=== PATIENT | male | born 1975 | race Caucasian/White ===

== ENCOUNTER → 2018-09-28 08:24 | Outpatient (CLI) | payer BC, SELFPAY ==
[2018-09-28 13:50] LABS: Basophils # 0.1 K/mm3 (0-0.2); Basophils % 0.9 % (0.1-2.0); Eosinophils # 0.3 K/mm3 (0.0-0.4); Eosinophils % 3.1 % (0.1-12.0); Hematocrit 47.5 % (42.0-52.0); Hemoglobin 15.8 g/dL (14.1-18.0); Lymphocytes # 2.5 K/mm3 (0.7-4.5); Lymphocytes % 30.7 % (10-50); Mean Corpuscular HGB Conc 33.3 g/dL (31.8-35.4); Mean Corpuscular Hemoglobin 29.6 pg (27.0-31.2); Mean Corpuscular Volume 88.9 fl (80-94); Mean Platelet Volume 8.3 fl (7.4-10.4); Monocytes # 0.5 K/mm3 (0.1-1.0); Monocytes % 5.8 % (1.7-9.3); Neutrophils # 4.7 K/mm3 (1.8-7.8); Neutrophils % 59.6 % (37.0-80.0); Platelet Count 250 K/mm3 (142-424); Red Blood Count 5.34 M/mm3 (4.60-6.20)
[2018-09-28 13:53] LABS: Alanine Aminotransferase 46 U/L (12-78); Albumin Level 3.7 gm/dL (3.4-5.0); Albumin/Globulin Ratio 1.1 (1.1-1.8); Alkaline Phosphatase 98 U/L (46-116); Anion Gap 14.8 mEq/L (5-15); Aspartate Amino Transferase 18 U/L (15-37); Bilirubin,Total 0.4 mg/dL (0.2-1.0); Blood Urea Nitrogen 12 mg/dL (7-18); Calcium 9.1 mg/dL (8.5-10.1); Carbon Dioxide 26 mmol/L (21.0-32.0); Chloride 106 mmol/L (98-107); Chol/HDL Ratio 10.7 (1-3.5); Cholesterol 236 mg/dL (140-200); Creatinine,Serum 0.91 mg/dL (0.70-1.30); Estimated Glomerular Filt Rate 91 ml/min (>60); GFR (African American) 110 ML/MIN (>60); Globulin 3.4 gm/dl (1.3-3.2); Glucose 102 mg/dL (74-106); HDL Cholesterol 22 mg/dL (27-67); LDL Cholesterol 147 mg/dL (0-130); Potassium 4.8 mmoL/L (3.5-5.1); Sodium 142 mmol/L (136-145); Total Protein,Serum 7.1 gm/dL (6.4-8.2); Triglycerides 337 mg/dL (30-200); VLDL Cholesterol 67 mg/dL (0-40)
== END ==
PROVIDERS: PCP Internal Medicine Adolescent Medicine; Visit Provider Internal Medicine Adolescent Medicine
DX: E78.2 Mixed hyperlipidemia (principal); R73.9 Hyperglycemia, unspecified
CPT/HCPCS: 36415; 80053; 80061; 85025

== ENCOUNTER → 2019-09-02 07:15 | Outpatient (CLI) | payer BC, SELFPAY ==
[2019-09-02 12:55] LABS: Basophils # 0.1 K/mm3 (0-0.2); Basophils % 0.7 % (0.1-2.0); Eosinophils # 0.2 K/mm3 (0.0-0.4); Eosinophils % 2.2 % (0.1-12.0); Hematocrit 40.2 % (42.0-52.0); Hemoglobin 15.5 g/dL (14.1-18.0); Lymphocytes # 2.8 K/mm3 (0.7-4.5); Lymphocytes % 29.4 % (10-50); Mean Corpuscular HGB Conc 38.6 g/dL (31.8-35.4); Mean Corpuscular Hemoglobin 34.6 pg (27.0-31.2); Mean Corpuscular Volume 89.6 fl (80-94); Mean Platelet Volume 8.4 fl (7.4-10.4); Monocytes # 0.6 K/mm3 (0.1-1.0); Monocytes % 6.1 % (1.7-9.3); Neutrophils # 5.8 K/mm3 (1.8-7.8); Neutrophils % 61.6 % (37.0-80.0); Platelet Count 221 K/mm3 (142-424); Red Blood Count 4.49 M/mm3 (4.60-6.20); Red Cell Distribution Width 13.9 % (11.5-17.5); White Blood Count 9.4 K/mm3 (4.8-10.8)
[2019-09-02 14:57] LABS: Alanine Aminotransferase 41 U/L (12-78); Albumin Level 3.7 gm/dL (3.4-5.0); Albumin/Globulin Ratio 1.2 (1.1-1.8); Alkaline Phosphatase 115 U/L (46-116); Anion Gap 11.9 mEq/L (5-15); Aspartate Amino Transferase 21 U/L (15-37); Blood Urea Nitrogen 17 mg/dL (7-18); Calcium 8.7 mg/dL (8.5-10.1); Carbon Dioxide 26 mmol/L (21.0-32.0); Chloride 106 mmol/L (98-107); Chol/HDL Ratio 9.3 (1-3.5); Cholesterol 215 mg/dL (140-200); Creatinine,Serum 1.07 mg/dL (0.70-1.30); Estimated Glomerular Filt Rate 75 ml/min (>60); GFR (African American) 90 ML/MIN (>60); Glucose 108 mg/dL (74-106); HDL Cholesterol 23 mg/dL (27-67); LDL Cholesterol 129 mg/dL (0-130); Potassium 4.9 mmoL/L (3.5-5.1); Sodium 139 mmol/L (136-145); Total Protein,Serum 6.7 gm/dL (6.4-8.2); Triglycerides 315 mg/dL (30-200); VLDL Cholesterol 63 mg/dL (0-40)
[2019-09-02 15:08] LABS: Bilirubin,Total 0.3 mg/dL (0.2-1.0)
== END ==
PROVIDERS: Visit Provider Internal Medicine Adolescent Medicine
DX: E78.2 Mixed hyperlipidemia (principal); R73.9 Hyperglycemia, unspecified
CPT/HCPCS: 36415; 80053; 80061; 85025

== ENCOUNTER → 2020-02-13 08:17 | Outpatient (CLI) | payer BC, SELFPAY ==
--- NOTE | 2020-02-13 08:23 | US_ITS ---
PROCEDURE: US ABD. AORTA SCREENING CLINICAL INDICATION: PRE-SYNCOPE,FAMILY H/O AAA COMPARISON: No exams were available for comparison FINDINGS: Maximum abdominal aorta diameter is 2 cm. No evidence of aortic aneurysm. Proximal common iliacs are unremarkable. IMPRESSION: Negative for aortic aneurysm Dictated by: Alex Tyler MD 02/13/2020 11:12 Electronically signed by Alex Tyler MD in [place] 02/13/2020 11:12
== END ==
PROVIDERS: PCP Internal Medicine Adolescent Medicine; Visit Provider Internal Medicine Adolescent Medicine
DX: R55 Syncope and collapse (principal); Z82.49 Family history of ischemic heart disease and other diseases of the circulatory system
CPT/HCPCS: 76705

== ENCOUNTER → 2020-11-16 08:39 | Outpatient (CLI) | payer BC, SELFPAY ==
[2020-11-16 13:49] LABS: Basophils # 0.1 K/mm3 (0-0.2); Basophils % 1.4 % (0.1-2.0); Eosinophils # 0.3 K/mm3 (0.0-0.4); Hemoglobin 15.8 g/dL (14.1-18.0); Lymphocytes # 2.6 K/mm3 (0.7-4.5); Lymphocytes % 27.8 % (10-50); Mean Corpuscular HGB Conc 31.6 g/dL (31.8-35.4); Mean Corpuscular Hemoglobin 29.2 pg (27.0-31.2); Mean Corpuscular Volume 92.3 fl (80-94); Mean Platelet Volume 8.2 fl (7.4-10.4); Monocytes # 0.6 K/mm3 (0.1-1.0); Monocytes % 5.8 % (1.7-9.3); Neutrophils # 5.9 K/mm3 (1.8-7.8); Platelet Count 211 K/mm3 (142-424); Red Blood Count 5.42 M/mm3 (4.60-6.20); White Blood Count 9.5 K/mm3 (4.8-10.8)
[2020-11-16 13:54] LABS: Alanine Aminotransferase 36 U/L (12-78); Albumin Level 4.1 g/dl (3.5-5.0); Albumin/Globulin Ratio 1.6 (1.1-1.8); Alkaline Phosphatase 114 U/L (38-126); Anion Gap 11.7 mEq/L (5-15); Aspartate Amino Transferase 29 U/L (17-59); Bilirubin,Total 0.6 mg/dl (0.2-1.3); Blood Urea Nitrogen 13 mg/dl (9-20); Calcium 9.2 mg/dl (8.4-10.2); Carbon Dioxide 23 mmol/L (22.0-30.0); Chloride 110 mmol/L (98-107); Chol/HDL Ratio 4.6 (1-3.5); Cholesterol 124 mg/dl (140-200); Estimated Glomerular Filt Rate 91 ml/min (>60); GFR (African American) 110 ML/MIN (>60); Globulin 2.6 g/dL (1.3-3.2); Glucose 104 mg/dl (74-100); HDL Cholesterol 27 mg/dl (40-60); Potassium 4.7 mmoL/L (3.5-5.1); Sodium 140 mmol/L (136-145); Total Protein,Serum 6.7 g/dl (6.3-8.2); Triglycerides 98 mg/dl (30-150); VLDL Cholesterol 20 mg/dL (0-40)
[2020-11-16 14:05] LABS: Direct LDL Cholesterol 79.13 mg/dL (100-129)
== END ==
PROVIDERS: Visit Provider Internal Medicine Adolescent Medicine
DX: E78.2 Mixed hyperlipidemia (principal); R73.9 Hyperglycemia, unspecified
CPT/HCPCS: 36415; 80053; 80061; 85025

== ENCOUNTER 2022-08-31 17:59 | Emergency (ER) | payer BC, SELFPAY ==
[2022-08-31 18:20] VITALS: BP 133/84; PULSE 101; RESP 20; TEMP 37.4; O2SAT 99; BMI 35.4
[2022-08-31 18:51] LABS: UTC Influenza A Antigen Negative (Negative); UTC Influenza B Antigen Negative (Negative)
--- NOTE | 2022-08-31 19:19 | EXP.UTC ---
Discharge Plan Disposition Patient Disposition: Home, Self-Care Condition: Good Prescriptions Prescriptions: New benzonatate 100 mg capsule 100 mg PO TID PRN (Reason: cough) Qty: 30 0RF methylprednisolone [Medrol (Cornelius)] 4 mg tablets,dose pack See Rx Instructions .Route .COMPLEX 6 Days Qty: 21 0RF Rx Instructions: taper pack; guaifenesin [Mucinex] 600 mg tablet extended release 12hr 1,200 mg PO BID PRN (Reason: cough) Qty: 20 0RF azithromycin [Zithromax Z-Cornelius] 250 mg tablet See Rx Instructions .ROUTE .COMPLEX 5 Days Qty: 6 0RF Rx Instructions: For 250 mg dose pack: take 500 mg today (day 1), then 250 mg for 4 days (days 2-5) Referrals Follow up/Referrals: Gama Agrawal MD [Primary Care Provider] - See instructions Activity Restrictions/Add. Instructions Additional Instructions/Restrictions: Start antibiotic today. Be sure to complete entire prescription even if feeling better Monitor temp. Tylenol every 4 hours as needed and / or ibuprofen every 6 hours as needed ( As long as your primary care physician has told you that it ok to take both. For fever/aches/pains ER if no less than 101 despite Tylenol or Motrin Humidifier/vaporizer or hot steamy shower Mucinex during the day for your cough and cough suppressant only at night. Be sure to drink lots of water. *Tessalon Perles will not cause drowsiness but use at bedtime to help stop cough so that you may get some rest. *Start steroid today. Helps with inflammation therefore, cough and wheezing. Follow directions on the package. Reviewed side effects. Patient reports taking them before. Follow up IMMEDIATELY for new or worsening of symptoms OR no noticeable improvement over the next 48-72 hours. 911 immediately for any life threatening symptoms such as chest pain or difficulty breathing Clinical Impressions Clinical Impression: Sinusitis Stand Alone Forms Stand Alone Forms: Work/School Release Instructions Patient Instructions: DI for Sinusitis, Sinusitis Discharge ED Provider: Lisa Neumann [facility] [place] HPI General Stated complaint: Congestion,Snezzing,cough,fever,Headache Mode of Arrival: Ambulatory Source of Information: Patient Limitations: No Limitations Time Seen by Provider: 08/31/22 19:19 Description of Symptoms (Recalled from Triage Doc. by RN): runny nose, RENTERIA, cough, and low grade fever HEENT Symptoms (Recalled from RN notes): Yes Resp Symptoms (Recalled from RN notes): No Skin Symptoms (Recalled from RN notes): No MS Symptoms (Recalled from RN notes): No Functional Status (Recalled from RN notes): n/a History of Present Illness Provider Complaint: Patient states that he hasnt felt well for several days States that since he has continued to get worse States that he has been having sinus pain and pressure in his sinuses, cough, headache and pressure behind his eyes States that he has been taking OTC medications but they havent helped much States that this evening he was still not feeling well so he came in to get checked Related Data Previous Rx's Medication Instructions Recorded azithromycin 250 mg tablet See Rx Instructions PO .COMPLEX 5 08/31/22 (Zithromax Z-Cornelius) days #6 tabs benzonatate 100 mg capsule 100 mg PO TID PRN cough #30 caps 08/31/22 guaifenesin 600 mg tablet, 1,200 mg PO BID PRN cough #20 tabs 08/31/22 extended release 12 hr (Mucinex) methylprednisolone 4 mg tablets in See Rx Instructions .Route 08/31/22 a dose pack (Medrol (Cornelius)) .COMPLEX 6 days #21 tabs Allergies Allergy/AdvReac Type Severity Reaction Status Date / Time No Known Allergies Allergy Verified 08/31/22 18:45 Worker's Comp Is this a Worker's Comp case?: No [facility] Disclaimer: The information contained in this section may have been updated after the patient was seen, as this information can be updated by other users. Social History Smoking Status: Unknown if ever smoked
[2022-08-31 19:41] VITALS: BP 133/84; PULSE 101; RESP 20; TEMP 37.4; O2SAT 99
== END 2022-08-31 19:40 | disposition home or self-care (01) ==
PROVIDERS: Emergency Provider Nurse Practitioner; PCP Internal Medicine Adolescent Medicine
DX: J32.9 Chronic sinusitis, unspecified (principal)
CPT/HCPCS: 87804; 99212; 99213; C9803; G0463; U0003; U0005

== ENCOUNTER 2023-03-20 18:48 | Emergency (ER) | payer BC, SELFPAY ==
[2023-03-20 18:49] VITALS: BP 146/73; PULSE 97; RESP 22; TEMP 37.1; O2SAT 94; BMI 35.9
--- NOTE | 2023-03-20 19:00 | EXP.UTC ---
Discharge Plan Disposition Patient Disposition: Home, Self-Care Condition: Good Prescriptions Prescriptions: New benzonatate [benzonatate] 100 mg capsule 100 mg PO TIDP PRN (Reason: Cough) Qty: 30 0RF methylprednisolone 4 mg Tablets,Dose Pack 4 mg PO DIRECTED Qty: 21 0RF albuterol sulfate [Ventolin HFA] 90 mcg/actuation HFA aerosol inhaler 2 puff inhalation Q6H PRN (Reason: shortness of breath or wheezing) Qty: 6.7 0RF amoxicillin-pot clavulanate 875-125 mg Tablet 1 tab PO Q12H Qty: 20 0RF No Action benzonatate 100 mg capsule 100 mg PO TID PRN (Reason: cough) Qty: 30 0RF methylprednisolone [Medrol (Cornelius)] 4 mg tablets,dose pack See Rx Instructions .Route .COMPLEX 6 Days Qty: 21 0RF Rx Instructions: taper pack; guaifenesin [Mucinex] 600 mg tablet extended release 12hr 1,200 mg PO BID PRN (Reason: cough) Qty: 20 0RF azithromycin [Zithromax Z-Cornelius] 250 mg tablet See Rx Instructions .ROUTE .COMPLEX 5 Days Qty: 6 0RF Rx Instructions: For 250 mg dose pack: take 500 mg today (day 1), then 250 mg for 4 days (days 2-5) Referrals Follow up/Referrals: Gama Agrawal MD [Primary Care Provider] - See instructions Activity Restrictions/Add. Instructions Additional Instructions/Restrictions: Drink plenty of fluids. Take tylenol or ibuprofen for pain or fever. Take the medications as directed. Follow up with your regular doctor. GO TO THE ER FOR ANY WORSENING SYMPTOMS Don't start the oral steroids until tomorrow, since you had the shot here today. Clinical Impressions Clinical Impression: Acute bronchitis, Sinusitis Stand Alone Forms Stand Alone Forms: Work/School Release Instructions Patient Instructions: DI for Sinusitis, DI for Acute Bronchitis, Ceftriaxone Injection, Methylprednisolone Injection Discharge ED Provider: Ben Alva [facility] General Stated complaint: congestion,soa Time Seen by Provider: 03/20/23 19:00 History of Present Illness Provider Complaint: He states that for the past 3 days he has had worsening chest and sinus congestion. He states that he gets short of breath if he walks or does anything strenuous. He denies any fever, but he has had chilling and body aches. Related Data Previous Rx's Medication Instructions Recorded azithromycin 250 mg tablet See Rx Instructions PO .COMPLEX 5 08/31/22 (Zithromax Z-Cornelius) days #6 tabs benzonatate 100 mg capsule 100 mg PO TID PRN cough #30 caps 08/31/22 guaifenesin 600 mg tablet, 1,200 mg PO BID PRN cough #20 tabs 08/31/22 extended release 12 hr (Mucinex) methylprednisolone 4 mg tablets in See Rx Instructions .Route 08/31/22 a dose pack (Medrol (Cornelius)) .COMPLEX 6 days #21 tabs albuterol sulfate 90 mcg/actuation 2 puff inhalation Q6H PRN 03/20/23 aerosol inhaler (Ventolin HFA) shortness of breath or wheezing #6.7 grams amoxicillin 875 mg-potassium 1 tab PO Q12H #20 tabs 03/20/23 clavulanate 125 mg tablet benzonatate 100 mg capsule 100 mg PO TIDP PRN Cough #30 caps 03/20/23 methylprednisolone 4 mg tablets in 4 mg PO DIRECTED #21 tabs 03/20/23 a dose pack Allergies Allergy/AdvReac Type Severity Reaction Status Date / Time No Known Allergies Allergy Verified 08/31/22 18:45 [facility] Disclaimer: The information contained in this section may have been updated after the patient was seen, as this information can be updated by other users. Social History (Updated 08/31/22 @ 19:26 by Lisa Neumann APRN) Smoking Status: Unknown if ever smoked alcohol intake: never current occupational status: employed Travel in the last 8 weeks: None ROS Obtained: Yes All systems reviewed & no additional complaints except as documented Constitutional Constitutional: Reports poor appetite Eyes Eyes: Reports system reviewed and no additional complaints, except as documented ENT Ears, Nose, Mouth, and Throat: Reports as per HPI Cardiovascular Cardiovascular:
--- NOTE | 2023-03-20 19:03 | XR_ITS ---
PROCEDURE INFORMATION: Exam: XR Chest Exam date and time: 03/20/2023 7:11 PM Age: 47 years old Clinical indication: Cough; Additional info: Cough, congestion TECHNIQUE: Imaging protocol: Radiologic exam of the chest. Views: 2 views. COMPARISON: No relevant prior studies available. FINDINGS: Lungs: Mild regions of peribronchial thickening at the lung bases. Pleural spaces: Unremarkable. No pleural effusion. No pneumothorax. Heart/Mediastinum: Unremarkable. No cardiomegaly. Bones/joints: Unremarkable. IMPRESSION: Findings compatible with bronchitis.
[2023-03-20 19:46] VITALS: BP 146/73; PULSE 97; RESP 22; TEMP 37.1; O2SAT 94
== END 2023-03-20 19:48 | disposition home or self-care (01) ==
PROVIDERS: Emergency Provider Nurse Practitioner Family; PCP Internal Medicine Adolescent Medicine
DX: J20.9 Acute bronchitis, unspecified (principal); J01.90 Acute sinusitis, unspecified
CPT/HCPCS: 71046; 96372; 99212; 99214; G0463; J0696

== ENCOUNTER 2023-07-28 21:42 | Observation (INO) | payer BC, SELFPAY ==
[2023-07-28 21:51] VITALS: BP 157/85; PULSE 58; RESP 17; TEMP 36.8; O2SAT 93; BMI 36.2
--- NOTE | 2023-07-28 21:52 | ECG_ITS ---
APPROVED REPORT Exam: Resting ECG HR:111 bpm ECG Measurements Heart Rate 111 AXES ND 147 P 28 QRSd 85 QRS 62 QT 310 T 61 QTc 375 Conclusion SINUS TACHYCARDIA WITH FREQUENT VENTRICULAR PREMATURE COMPLEXES ABNORMAL RHYTHM ECG UNCONFIRMED REPORT Electronically signed by : Gama Agrawal MD 07/30/2023 20:35:41
--- NOTE | 2023-07-28 21:57 | XR_ITS ---
PROCEDURE INFORMATION: Exam: XR Chest Exam date and time: 07/28/2023 9:54 PM Age: 48 years old Clinical indication: Shortness of breath; Additional info: Shortness of air TECHNIQUE: Imaging protocol: Radiologic exam of the chest. Views: 2 views. COMPARISON: CR XR CHEST 2V 03/20/2023 7:11 PM FINDINGS: Lungs: Pulmonary vessels are normal. Low lung volumes. Mild patchy opacification perihilar regions. No focal airspace consolidation. Pleural spaces: Unremarkable. No pleural effusion. No pneumothorax. Heart/Mediastinum: Cardiac silhouette is normal. Bones/joints: Unremarkable. IMPRESSION: Mild patchy opacification perihilar regions. Possible bronchitic change.
--- NOTE | 2023-07-28 21:57 | XR_ITS ---
PROCEDURE INFORMATION: Exam: XR Left Shoulder Exam date and time: 07/28/2023 9:55 PM Age: 48 years old Clinical indication: Pain; Shoulder; Left; Additional info: Pain with inspiration TECHNIQUE: Imaging protocol: Radiologic exam of the left shoulder. Views: 2 or more views. COMPARISON: CR Chest 07/28/2023 9:54 PM FINDINGS: Bones/joints: Normal. Soft tissues: Normal. IMPRESSION: No acute findings.
[2023-07-28 22:00] VITALS: BP 147/72; PULSE 55; O2SAT 92
[2023-07-28 22:04] LABS: Coronavirus 19, PCR Not Detected (NotDetected); Influenza A, PCR Not Detected (NotDetected); Influenza B, PCR Not Detected (NotDetected)
[2023-07-28 22:08] LABS: Basophils # 0.1 K/mm3 (0-0.2); Basophils % 0.5 % (0.1-2.0); Eosinophils # 0.3 K/mm3 (0.0-0.4); Eosinophils % 1.6 % (0.1-12.0); Hematocrit 47.9 % (42.0-52.0); Hemoglobin 16.4 g/dL (14.1-18.0); Lymphocytes % 18.6 % (10-50); Mean Corpuscular HGB Conc 34.2 g/dL (31.8-35.4); Mean Corpuscular Hemoglobin 29.9 pg (27.0-31.2); Mean Corpuscular Volume 87.4 fl (80-94); Mean Platelet Volume 8.1 fl (7.4-10.4); Monocytes % 6.3 % (1.7-9.3); Neutrophils # 11.6 K/mm3 (1.8-7.8); Neutrophils % 73.1 % (37.0-80.0); Platelet Count 217 K/mm3 (142-424); Red Blood Count 5.47 M/mm3 (4.60-6.20); Red Cell Distribution Width 13.2 % (11.5-17.5); White Blood Count 15.9 K/mm3 (4.8-10.8)
[2023-07-28 22:12] LABS: MANUAL DIFFERENTIAL MANUAL DIFFERENTIAL (MANUAL DIFF)
[2023-07-28 22:19] LABS: Chloride 101 mmol/L (98-107); Sodium 135 mmol/L (136-145)
[2023-07-28 22:20] LABS: Potassium 4.3 mmoL/L (3.5-5.1)
[2023-07-28 22:22] LABS: Alanine Aminotransferase 26 U/L (12-78); Albumin Level 3.4 g/dl (3.5-5.0); Albumin/Globulin Ratio 1.1 (1.1-1.8); Alkaline Phosphatase 90 U/L (38-126); Anion Gap 9.3 mEq/L (5-15); Aspartate Amino Transferase 30 U/L (17-59); Blood Urea Nitrogen 14 mg/dl (9-20); Carbon Dioxide 29 mmol/L (22.0-30.0); Creatinine Clearance Estimated 149 mL/min (50-200); Estimated Glomerular Filt Rate 79 ml/min (>60); GFR (African American) 96 ML/MIN (>60); Globulin 3.2 g/dL (1.3-3.2); Total Protein,Serum 6.6 g/dl (6.3-8.2)
[2023-07-28 22:23] LABS: Calcium 8.2 mg/dl (8.4-10.2); Glucose 115 mg/dl (74-100)
[2023-07-28 22:26] LABS: Eosinophils % 2 % (0-3); Lymphocytes % 18 % (10-50); Monocytes % 6 % (2-9); Neutrophils % 74 % (42-76); Platelet Estimate Normal; RBC Morphology Normal; Total Cells Counted 100
[2023-07-28 22:31] VITALS: BP 110/54; PULSE 55; O2SAT 91
[2023-07-28 22:32] LABS: NT Pro Brain Natriuretic Pep. 24.5 pg/mL (0-125)
--- NOTE | 2023-07-28 22:34 | ECG_ITS ---
APPROVED REPORT Exam: Resting ECG HR:106 bpm ECG Measurements Heart Rate 106 AXES VA 145 P 44 QRSd 80 QRS 65 QT 310 T 69 QTc 372 Conclusion SINUS TACHYCARDIA WITH FREQUENT VENTRICULAR PREMATURE COMPLEXES ABNORMAL RHYTHM ECG UNCONFIRMED REPORT Electronically signed by : Gama Agrawal MD 07/30/2023 20:35:35
--- NOTE | 2023-07-28 22:36 | PC.NURSE ---
in room talking with patient at this time.
--- NOTE | 2023-07-28 22:38 | CT_ITS ---
PROCEDURE INFORMATION: Exam: CTA Chest With Contrast Exam date and time: 07/28/2023 10:54 PM Age: 48 years old Clinical indication: Chest wall pain; Additional info: Pleuritic chest pain TECHNIQUE: Imaging protocol: Computed tomographic angiography of the chest with contrast. Exam focused on the arteries. 3D rendering (Not supervised by radiologist): MIP and/or 3D reconstructed images were created by the technologist. Radiation optimization: All CT scans at this facility use at least one of these dose optimization techniques: automated exposure control; mA and/or kV adjustment per patient size (includes targeted exams where dose is matched to clinical indication); or iterative reconstruction. Contrast material: ISOUVE; Contrast volume: 75 ml; Contrast route: INTRAVENOUS (IV); COMPARISON: CR Chest 07/28/2023 9:54 PM FINDINGS: Pulmonary arteries: Suboptimal contrast opacification of the pulmonary arteries. Peripheral vessels are suboptimally opacified. No central pulmonary emboli seen. Aorta: Unremarkable. No aortic aneurysm. No aortic dissection. Lungs: Mild ground-glass opacification of the lungs. Mild patchy airspace opacification left lower lobe image 7/86. Low lung volumes. Pleural spaces: Unremarkable. No pneumothorax. No pleural effusion. Heart: Unremarkable. No cardiomegaly. No pericardial effusion. Lymph nodes: Unremarkable. No enlarged lymph nodes. Bones/joints: Unremarkable. No acute fracture. Soft tissues: Unremarkable. IMPRESSION: 1. Suboptimal contrast opacification of the pulmonary arteries. Peripheral vessels are suboptimally opacified. No central pulmonary emboli seen. 2. Mild ground-glass opacification of the lungs. Differential diagnosis includes expiratory low volume lungs, inflammation or edema. 3. Mild patchy airspace opacification left lower lobe ; atelectasis or early infiltrate. 4. Low lung volumes.
[2023-07-28 22:39] LABS: Troponin I < 0.01 ng/ml (0.00-0.034)
--- NOTE | 2023-07-28 22:39 | [facility].EDCP ---
Discharge Plan Disposition Patient Disposition: Still a Patient Prescriptions Prescriptions: No Action benzonatate 100 mg capsule 100 mg PO TID PRN (Reason: cough) Qty: 30 0RF methylprednisolone [Medrol (Cornelius)] 4 mg tablets,dose pack See Rx Instructions .Route .COMPLEX 6 Days Qty: 21 0RF Rx Instructions: taper pack; guaifenesin [Mucinex] 600 mg tablet extended release 12hr 1,200 mg PO BID PRN (Reason: cough) Qty: 20 0RF azithromycin [Zithromax Z-Cornelius] 250 mg tablet See Rx Instructions .ROUTE .COMPLEX 5 Days Qty: 6 0RF Rx Instructions: For 250 mg dose pack: take 500 mg today (day 1), then 250 mg for 4 days (days 2-5) benzonatate [benzonatate] 100 mg capsule 100 mg PO TIDP PRN (Reason: Cough) Qty: 30 0RF methylprednisolone 4 mg Tablets,Dose Pack 4 mg PO DIRECTED Qty: 21 0RF albuterol sulfate [Ventolin HFA] 90 mcg/actuation HFA aerosol inhaler 2 puff inhalation Q6H PRN (Reason: shortness of breath or wheezing) Qty: 6.7 0RF amoxicillin-pot clavulanate 875-125 mg Tablet 1 tab PO Q12H Qty: 20 0RF Referrals Follow up/Referrals: Gama Agrawal MD [Primary Care Provider] - See instructions Clinical Impressions Clinical Impression: Chest pain, pleuritic, Frequent PVCs Discharge ED Provider: Uyen Jeffery [facility] <Uyen Jeffery MD - Last Filed: 07/28/23 22:43> General Chief Complaint: Shortness of Breath/Dyspnea Stated Complaint: SOA,cough Time Seen by Provider: 07/28/23 22:22 Mode of Arrival: Family Vehicle Source of Information: Patient Limitations: No Limitations Description of Symptoms (Recalled from ER Triage Doc. by RN): 48 yo male presents with mid left back pain/mid left shoulder pain that increases with inspiration/movement. Patient states he has notable increase in SOA since Thursday, accompanied by this pain. Denies trauma, however was lifting on [place] this date. H/o of a trauma a year ago with similar discomfort. Hasn't seen PCP in 2 years. Former smoker. No meds despite PCP trying to have him on hyperlipidemia control and hypertension control. Patient family h/o: sig for cards. History of Present Illness HPI narrative: Patient is a 48-year-old male with no significant past medical problems presenting today with pleuritic chest pain on the left aspect of his chest wall also in his left axillary region. States that he had a cough for the last several days as well. Also states that he had a viral URI 2 weeks ago in middle of June. Denies any fevers or chills does state this pain is positional in nature improving with sitting forward worsening with lying back particularly to the left side. Related Data Previous Rx's Medication Instructions Recorded azithromycin 250 mg tablet See Rx Instructions PO .COMPLEX 5 08/31/22 (Zithromax Z-Cornelius) days #6 tabs benzonatate 100 mg capsule 100 mg PO TID PRN cough #30 caps 08/31/22 guaifenesin 600 mg tablet, 1,200 mg PO BID PRN cough #20 tabs 08/31/22 extended release 12 hr (Mucinex) methylprednisolone 4 mg tablets in See Rx Instructions .Route 08/31/22 a dose pack (Medrol (Cornelius)) .COMPLEX 6 days #21 tabs albuterol sulfate 90 mcg/actuation 2 puff inhalation Q6H PRN 03/20/23 aerosol inhaler (Ventolin HFA) shortness of breath or wheezing #6.7 grams amoxicillin 875 mg-potassium 1 tab PO Q12H #20 tabs 03/20/23 clavulanate 125 mg tablet benzonatate 100 mg capsule 100 mg PO TIDP PRN Cough #30 caps 03/20/23 methylprednisolone 4 mg tablets in 4 mg PO DIRECTED #21 tabs 03/20/23 a dose pack Allergies Allergy/AdvReac Type Severity Reaction Status Date / Time No Known Allergies Allergy Verified 08/31/22 18:45 PFSH <Uyen Jeffery MD - Last Filed: 07/28/23 22:43> PFS Disclaimer: The information contained in this section may have been updated after the patient was seen, as this information can be updated by other users. Social History (Updated 08/31/22 @ 19:26 by Lisa Neumann APRN) Smoking Status: Former smoker alcohol intake: never current occupational status: employed Travel in the last 8 weeks: None <Uyen Jeffery MD - Last Filed: 07/28/23 22:43> ROS Obtained: Yes All systems reviewed & no additional complaints except as documented Physical Exam <Uyen Jeffery MD - Last Filed: 07/28/23 22:43> General General appearance: alert Respiratory Respiratory exam: Present normal lung sounds bilaterally; Absent respiratory distress, wheezes, stridor or accessory muscle use Cardiovascular Cardiovascular exam: Present bradycardia Neurological Exam Neurological exam: Present alert, oriented X3, CN II-XII intact and normal gait; Absent motor sensory deficit HEART Score <Uyen Jeffery MD - Last Filed: 07/28/23 22:43> HEART Score HEART Score assessment performed?: No Critical Care <Uyen Jeffery MD - Last Filed: 07/28/23 22:43> Critical Care Time Critical Care Time: No Medical Decision Making <Uyen Jeffery MD - Last Filed: 07/28/23 22:43> Miguel Inquiry Pt receiving controlled substance: No Vital Signs Vital Signs: 07/28/23 21:51 07/28/23 22:00 07/28/23 22:31 Temperature 98.2 F Temperature Source Oral Pulse Rate 55 L 55 L Pulse Rate [Right Brachial] 58 L Respiratory Rate 17 Blood Pressure 147/72 H 110/54 L Blood Pressure [Right Arm] 157/85 H Blood Pressure Mean [Right Arm] 109 Blood Pressure Source [Right Arm] Automatic Cuff Blood Pressure Position [Right Arm] Sitting 02 Sat by Pulse Oximetry 93 L 92 L 91 L Oxygen Delivery Method Room Air Room Air Lab Data Lab results reviewed: Yes I reviewed the patient's lab results. Labs: Lab Results 07/28/23 21:48: SARS-CoV-2 (PCR) Not detected, Influenza A Untype (PCR) Not detected, Influenza Type B (PCR) Not detected 07/28/23 21:55: WBC 15.9 H, RBC 5.47, Hgb 16.4, Hct 47.9, MCV 87.4, MCH 29.9, MCHC 34.2, RDW 13.2, Plt Count 217, MPV 8.1, Neut % (Auto) 73.1, Lymph % (Auto) 18.6, [place]ackelford % (Auto) 6.3, Eos % (Auto) 1.6, Baso % (Auto) 0.5, Neut # (Auto) 11.6 H, Lymph # (Auto) 3.0, [place]ack[place]ord # (Auto) 1.0, Eos # (Auto) 0.3, Baso # (Auto) 0.1, Total Counted 100, Neutrophils % (Manual) 74, Lymphocytes % (Manual) 18, Monocytes % (Manual) 6, Eosinophils % (Manual) 2, Platelet Estimate Normal, RBC Morphology Normal, ESR 21 H, Sodium 135 L, Potassium 4.3, Chloride 101, Carbon Dioxide 29, Anion Gap 9.3, BUN 14, Creatinine 1.00, Estimated Creat Clear 149, Estimated GFR 79, Est GFR ( Amer) 96, Glucose 115 H, Calcium 8.2 L, Magnesium 2.0, Total Bilirubin 1.0, AST 30, ALT 26, Alkaline Phosphatase 90, Troponin I < 0.01, C-Reactive Protein 126.6 H, NT-Pro-B Natriuret Pep 24.5, Total Protein 6.6, Albumin 3.4 L, Globulin 3.2, Albumin/Globulin Ratio 1.1, TSH 2.56 07/28/23 21:55 07/28/23 21:55 Response Orders (Tests/Meds): ED MEDICATIONS Generic Name Dose Route Start Last Admin Trade Name Freq PRN Reason Stop Dose Admin Sodium Chloride 10 ml 07/28/23 22:59 07/28/23 23:00 Sodium Chloride 0.9% 10ml Syr (Rad Only) IV 08/27/23 22:58 10 ml NEEDED PRN Administration Maintain IV Site Discontinued Medications Generic Name Dose Route Start Last Admin Trade Name Freq PRN Reason Stop Dose Admin Iopamidol 75 ml 07/28/23 22:59 07/28/23 23:00 Iopamidol-370 (76%);100ml Bottle IV 07/28/23 23:00 75 ml ONCE ONE Administration ORDERS Category Date Time Status CT angio chest PE protocol Stat Cat Scan 07/28/23 22:38 Completed XR chest 2V Stat Exams 07/28/23 21:57 Completed XR shoulder LT min 2V Stat Exams 07/28/23 21:57 Completed Brain Natriuretic Peptide Stat Lab 07/28/23 21:55 Completed CRP [C-Reactive Protein] Stat Lab 07/28/23 21:55 Completed Complete Blood Count Auto Diff Stat Lab 07/28/23 21:55 Completed Comprehensive Metabolic Panel Stat Lab 07/28/23 21:55 Completed ESR [Erythrocyte Sedimentation Rate] Stat Lab 07/28/23 21:55 Completed Full Resp Panel w/COVID ([facility]) Routine Lab 07/28/23 21:48 Received Magnesium Stat Lab 07/28/23 21:55 Completed Rapid PCR Covid and Flu A/B Stat Lab 07/28/23 21:48 Completed TSH [Thyroid Stimulating Hormone] Stat Lab 07/28/23 21:55 Completed Troponin I Q3H Lab 07/29/23 01:00 Ordered Troponin I Q3H Lab 07/29/23 04:00 Ordered Troponin I Stat Lab 07/28/23 21:55 Completed ECG initial Besson Routine Y 07/28/23 21:52 Completed MDM Narrative Medical Decision Narrative: Patient is a 48-year-old male presenting today with left-sided pleuritic chest pain. EKG was performed I personally interpreted which showed sinus tachycardia ventricular rate of 111 however there are frequent PVCs no acute ischemic changes noted normal axis otherwise this was repeated showed a ventricular rate of 106 again very frequent PVCs otherwise no acute ischemic changes normal axis etc. Of note patient's perfusing rhythm is in the 50s clinically but his ventricular rate is in the low 1 teens with near bigeminy. I did a bedside ultrasound which did not show a pericardial effusion nor any significant right heart strain or LVEF depression however he was having very frequent PVCs. Will check electrolytes get a CT PE to further evaluate patient's symptoms. I suspect he may have myocarditis pericarditis other viral related symptoms. Given the frequency of his ventricular ectopy we will favor keeping him in the hospital however this will be transitioned to Dr. Fred Guzman at 11 PM for further evaluation and treatment. <Fred Guzman, DO - Last Filed: 07/28/23 23:55> Vital Signs Vital Signs: 07/28/23 21:51 07/28/23 22:00 07/28/23 22:31 Temperature 98.2 F Temperature Source Oral Pulse Rate 55 L 55 L Pulse Rate [Right Brachial] 58 L Respiratory Rate 17 Blood Pressure 147/72 H 110/54 L Blood Pressure [Right Arm] 157/85 H Blood Pressure Mean [Right Arm] 109 Blood Pressure Source [Right Arm] Automatic Cuff Blood Pressure Position [Right Arm] Sitting 02 Sat by Pulse Oximetry 93 L 92 L 91 L Oxygen Delivery Method Room Air Room Air Lab Data Labs: Lab Results 07/28/23 21:48: SARS-CoV-2 (PCR) Not detected, Influenza A Untype (PCR) Not detected, Influenza Type B (PCR) Not detected 07/28/23 21:55: WBC 15.9 H, RBC 5.47, Hgb 16.4, Hct 47.9, MCV 87.4, MCH 29.9, MCHC 34.2, RDW 13.2, Plt Count 217, MPV 8.1, Neut % (Auto) 73.1, Lymph % (Auto) 18.6, Shackelford % (Auto) 6.3, Eos % (Auto) 1.6, Baso % (Auto) 0.5, Neut # (Auto) 11.6 H, Lymph # (Auto) 3.0, Shack[place]ord # (Auto) 1.0, Eos # (Auto) 0.3, Baso # (Auto) 0.1, Total Counted 100, Neutrophils % (Manual) 74, Lymphocytes % (Manual) 18, Monocytes % (Manual) 6, Eosinophils % (Manual) 2, Platelet Estimate Normal, RBC Morphology Normal, ESR 21 H, Sodium 135 L, Potassium 4.3, Chloride 101, Carbon Dioxide 29, Anion Gap 9.3, BUN 14, Creatinine 1.00, Estimated Creat Clear 149, Estimated GFR 79, Est GFR ( Amer) 96, Glucose 115 H, Calcium 8.2 L, Magnesium 2.0, Total Bilirubin 1.0, AST 30, ALT 26, Alkaline Phosphatase 90, Troponin I < 0.01, C-Reactive Protein 126.6 H, NT-Pro-B Natriuret Pep 24.5, Total Protein 6.6, Albumin 3.4 L, Globulin 3.2, Albumin/Globulin Ratio 1.1, TSH 2.56 Response Orders (Tests/Meds): ED MEDICATIONS Generic Name Dose Route Start Last Admin Trade Name Freq PRN Reason Stop Dose Admin Sodium Chloride 10 ml 07/28/23 22:59 07/28/23 23:00 Sodium Chloride 0.9% 10ml Syr (Rad Only) IV 08/27/23 22:58 10 ml NEEDED PRN Administration Maintain IV Site Discontinued Medications Generic Name Dose Route Start Last Admin Trade Name Freq PRN Reason Stop Dose Admin Iopamidol 75 ml 07/28/23 22:59 07/28/23 23:00 Iopamidol-370 (76%);100ml Bottle IV 07/28/23 23:00 75 ml ONCE ONE Administration ORDERS Category Date Time Status CT angio chest PE protocol Stat Cat Scan 07/28/23 22:38 Completed XR chest 2V Stat Exams 07/28/23 21:57 Completed XR shoulder LT min 2V Stat Exams 07/28/23 21:57 Completed Brain Natriuretic Peptide Stat Lab 07/28/23 21:55 Completed CRP [C-Reactive Protein] Stat Lab 07/28/23 21:55 Completed Complete Blood Count Auto Diff Stat Lab 07/28/23 21:55 Completed Comprehensive Metabolic Panel Stat Lab 07/28/23 21:55 Completed ESR [Erythrocyte Sedimentation Rate] Stat Lab 07/28/23 21:55 Completed Full Resp Panel w/COVID ([facility]) Routine Lab 07/28/23 21:48 Received Magnesium Stat Lab 07/28/23 21:55 Completed Rapid PCR Covid and Flu A/B Stat Lab 07/28/23 21:48 Completed TSH [Thyroid Stimulating Hormone] Stat Lab 07/28/23 21:55 Completed Troponin I Q3H Lab 07/29/23 01:00 Ordered Troponin I Q3H Lab 07/29/23 04:00 Ordered Troponin I Stat Lab 07/28/23 21:55 Completed ECG initial Besson Routine Y 07/28/23 21:52 Completed MDM Narrative Medical Decision Narrative: Patient is a 48-year-old male presenting today with left-sided pleuritic chest pain. EKG was performed I personally interpreted which showed sinus tachycardia ventricular rate of 111 however there are frequent PVCs no acute ischemic changes noted normal axis otherwise this was repeated showed a ventricular rate of 106 again very frequent PVCs otherwise no acute ischemic changes normal axis etc. Of note patient's perfusing rhythm is in the 50s clinically but his ventricular rate is in the low 1 teens with near bigeminy. I did a bedside ultrasound which did not show a pericardial effusion nor any significant right heart strain or LVEF depression however he was having very frequent PVCs. Will check electrolytes get a CT PE to further evaluate patient's symptoms. I suspect he may have myocarditis pericarditis other viral related symptoms. Given the frequency of his ventricular ectopy we will favor keeping him in the hospital however this will be transitioned to Dr. Fred Guzman at 11 PM for further evaluation and treatment. Dr. Guzman: CT PE with no pulmonary embolism. Notable mild patchy airspace opacification in the left lower lobe that could be atelectasis or early infiltrate on CT read. Patient was reassessed. He remains medically stable and in no distress. Pain controlled this time. I discussed ED workup and results and current plan to admit to hospital medicine for observation with possible cardiology consult in the morning in the setting of his chest pain and PVCs. He was agreeable to plan. I did consult with hospital medicine and they agreed to evaluate patient was subsequently admitted to their service for further management.
[2023-07-28 22:44] LABS: Adenovirus,PCR Not Detected (NotDetected); Coronavirus 19, PCR Not Detected (NotDetected); Coronavirus 229E Not Detected (NotDetected); Coronavirus NL63 Not Detected (NotDetected); Coronavirus OC43 Not Detected (NotDetected); Coronovirus HKU1,PCR Not Detected (NotDetected); Human Metapneumovirus Not Detected (NotDetected); Influenza A, PCR Not Detected (NotDetected); Influenza AH1, 2009 Not Detected (NotDetected); Influenza AH1, PCR Not Detected (NotDetected); Influenza AH3,PCR Not Detected (NotDetected); Influenza B, PCR Not Detected (NotDetected); Parainfluenza 1, PCR Not Detected (NotDetected); Parainfluenza 2, PCR Not Detected (NotDetected); Parainfluenza 3, PCR Not Detected (NotDetected); Parainfluenza 4, PCR Not Detected (NotDetected); Respiratory Syncytial Virus Not Detected (NotDetected); Rhinovirus/Enterovirus Not Detected (NotDetected)
[2023-07-28 22:53] LABS: C-Reactive Protein 126.6 mg/L (0-4)
[2023-07-28] MEDS: SODIUM CHLORIDE 0.9% 10ML SYR (RAD ONLY) 10 ML IV (23:00)
[2023-07-28] MEDS: IOPAMIDOL-370 (76%);100ML BOTTLE 75 ML IV (23:00)
[2023-07-28 23:01] VITALS: BP 135/69; PULSE 57; O2SAT 93
[2023-07-28 23:20] LABS: Erythrocyte Sedimentation Rate 21 mm/hr (0-15)
[2023-07-28 23:30] VITALS: BP 128/77; PULSE 55; RESP 18; O2SAT 93
[2023-07-28 23:44] LABS: Thyroid Stimulating Hormone 2.56 uIU/mL (0.465-4.68)
--- NOTE | 2023-07-28 23:58 | EXP.HP ---
History of Present Illness *Admission Date: 07/28/23 *Reason for visit:: chest wall pain *History of present illness: This is a 48-year-old obese male, former smoker with no other significant past medical problems presenting today with pleuritic chest pain on the left aspect of his chest wall also in his left axillary region. States that he had a cough for the last several days as well. Also states that he had a viral URI 2 weeks ago in middle of June. Denies any fevers or chills does state this pain is positional in nature improving with sitting forward worsening with lying back particularly to the left side. Admitted for further work up and treatment [facility] Disclaimer: The information contained in this section may have been updated after the patient was seen, as this information can be updated by other users. Social History (Updated 07/29/23 @ 00:52 by Grisel Aldridge RN) Smoking Status: Former smoker alcohol intake: never current occupational status: employed Travel in the last 8 weeks: None Review of Systems Review of Systems Review of systems:: pertinent systems reviewed and negative unless documented below Meds Home Medications and Allergies Home Medications Medication Instructions Recorded Confirmed Type No Known Home Medications 07/29/23 07/29/23 History New Prescriptions to Start Prescriptions: Allergies Allergy/AdvReac Type Severity Reaction Status Date / Time No Known Allergies Allergy Verified 08/31/22 18:45 Exam Data for Last 24 hours Vital signs and Labs for Last 24 Hours: Temp Pulse Resp BP Pulse Ox O2 Del Method 98.2 F 55 L 18 128/77 93 L Room Air 07/28/23 21:51 07/28/23 23:30 07/28/23 23:30 07/28/23 23:30 07/28/23 23:30 07/28/23 22:00 Laboratory Results - last 24 hr 07/28/23 21:48: SARS-CoV-2 (PCR) Not detected, Influenza A Untype (PCR) Not detected, Influenza Type B (PCR) Not detected 07/28/23 21:55: WBC 15.9 H, RBC 5.47, Hgb 16.4, Hct 47.9, MCV 87.4, MCH 29.9, MCHC 34.2, RDW 13.2, Plt Count 217, MPV 8.1, Neut % (Auto) 73.1, Lymph % (Auto) 18.6, Prentiss % (Auto) 6.3, Eos % (Auto) 1.6, Baso % (Auto) 0.5, Neut # (Auto) 11.6 H, Lymph # (Auto) 3.0, [place]rentiss # (Auto) 1.0, Eos # (Auto) 0.3, Baso # (Auto) 0.1, Total Counted 100, Neutrophils % (Manual) 74, Lymphocytes % (Manual) 18, Monocytes % (Manual) 6, Eosinophils % (Manual) 2, Platelet Estimate Normal, RBC Morphology Normal, ESR 21 H, Sodium 135 L, Potassium 4.3, Chloride 101, Carbon Dioxide 29, Anion Gap 9.3, BUN 14, Creatinine 1.00, Estimated Creat Clear 149, Estimated GFR 79, Est GFR ( Amer) 96, Glucose 115 H, Calcium 8.2 L, Magnesium 2.0, Total Bilirubin 1.0, AST 30, ALT 26, Alkaline Phosphatase 90, Troponin I < 0.01, C-Reactive Protein 126.6 H, NT-Pro-B Natriuret Pep 24.5, Total Protein 6.6, Albumin 3.4 L, Globulin 3.2, Albumin/Globulin Ratio 1.1, TSH 2.56 I & O for Last 24 hours: Intake & Output 07/25/23 07/26/23 07/27/23 07/28/23 23:59 23:59 23:59 23:59 Weight 117.934 kg Constitutional Constitutional: mild distress, obese and cooperative *Routine HEENT Exam Head: Present normocephalic and atraumatic Eye: Present EOMI, PERRL and normal accommodation ENT: Present mucous membranes moist *Routine Neck Exam Neck: Present supple, full ROM and trachea midline *Routine Respiratory Exam Respiratory: Present diminished air movement, normal respiratory effort, able to speak in complete sentences and symmetric chest movement *Routine Cardiovascular Exam Cardiovascular: Present RRR, Normal S1 and Normal S2 *Routine Abdominal Exam Abdominal: Present soft, normoactive bowel sounds and obese; Absent organomegaly *Routine Rectal Exam Rectal:: deferred *Routine Genitalia Exam Genitalia:: deferred *Routine Extremities Exam Extremities: Present full ROM and pulses intact; Absent cyanosis, clubbing or edema *Routine Skin Exam Skin: Present intact, dry and warm *Routine Neurological Exam Neurological: Present alert, oriented X3, normal reflexes, moving all extremities and normal speech Routine Psychiatric Exam Psychiatric: Present normal thought process, cooperative and good judgment H&P: Result Imaging and Cardiology EKG: Status: image reviewed by me and Preliminary report CT scan - chest: Status: image reviewed by me, Preliminary report and final report Assessment and Plan *Assessment and plan (1) Chest pain, pleuritic: Status: Acute Category: Medical Code(s): R07.81 - Pleurodynia (2) Left lower lobe pneumonia: Status: Acute Qualifiers: Pneumonia type: due to unspecified organism Qualified Code(s): J18.9 - Pneumonia, unspecified organism Category: Medical Code(s): J18.9 - Pneumonia, unspecified organism (3) Frequent PVCs: Status: Acute Category: Medical Code(s): I49.3 - Ventricular premature depolarization (4) Obesity: Status: Acute Qualifiers: Obesity type: unspecified obesity type Obesity classification: adult class 2 (BMI 35 - 39.9) Serious obesity comorbidity presence: unspecified whether serious comorbidity present Body mass index: BMI 39.0-39.9 Qualified Code(s): E66.9 - Obesity, unspecified; Z68.39 - Body mass index [BMI] 39.0-39.9, adult Category: Medical Code(s): E66.9 - Obesity, unspecified Plan 48-year-old obese male, former smoker with no other significant past medical problems presenting today with pleuritic chest pain on the left aspect of his chest wall also in his left axillary region. States that he had a cough for the last several days as well. On arrival patient underwent for CTA of chest, that ruled out PEs. Imaging reviewed. There is a concern for mild patchy left lower lobe, with groundglass opacities. Lab work was done. EKG reviewed, with concerning of PVCs. findings are consistent with leukocytosis, elevated CRP ESR. Findings discussed with the ER for admission. Plan as follows: -Chest pleuritic pain associated with left lower pneumonia: Admit patient for medical services. Dispo MedSurg Ceftriaxone and Zithromax IV Sputum and blood culture pending Pulmonology consult Monitor for O2 saturation. Currently on room air. Oxygen as needed Tylenol and morphine for pain management -Frequent PVCs: Unclear etiology to rule out cardiomyopathy versus a sleep apnea syndrome: Patient is stated that primary doctor was concerning of having sleep apnea but the beginning never completed studies. Patient denies any other drugs or alcohol. Echocardiogram ordered Cardiology consult. Keep n.p.o. for possible cardiac intervention. Monitor CMP daily. Watch for electrolyte imbalance TSH normal Monitor for chest pain. Vital signs, including BP per unit protocol Obesity: Will complicate process care, including risk sleep apnea. educated on weight loss management. PCP to follow abnormal BMI Lovenox for DVT prophylax. On Protonix for GI bleed prophylaxis Full code
[2023-07-29] VITALS (10 sets, daily range): BP systolic 99–150; BP diastolic 49–93; PULSE 50–103; RESP 14–18; TEMP 36.6–37.3; O2SAT 92–94; BMI 39.0
--- NOTE | 2023-07-29 00:20 | PC.NURSE ---
Nurse to nurse report to Windy BANDA
[2023-07-29] MEDS: 0.9 % SODIUM CHLORIDE 1000ML 1,000 ML 50 ML IV ×2 (00:58→23:38)
[2023-07-29] MEDS: AZITHROMYCIN 500 MG in 0.9 % SODIUM CHLORIDE 250 ML 250 MG IV ×2 (00:59→23:38)
[2023-07-29] MEDS: CEFTRIAXONE 1 GM 1 GM in 0.9 % SODIUM CHLORIDE 50 ML IV ×2 (00:59→21:19)
[2023-07-29 02:07] LABS: Troponin I < 0.01 ng/ml (0.00-0.034)
[2023-07-29 04:13] LABS: Basophils # 0.1 K/mm3 (0-0.2); Basophils % 0.5 % (0.1-2.0); Eosinophils # 0.1 K/mm3 (0.0-0.4); Eosinophils % 0.7 % (0.1-12.0); Hematocrit 44.9 % (42.0-52.0); Hemoglobin 15.2 g/dL (14.1-18.0); Lymphocytes # 2.4 K/mm3 (0.7-4.5); Lymphocytes % 14.9 % (10-50); Mean Corpuscular HGB Conc 33.9 g/dL (31.8-35.4); Mean Corpuscular Hemoglobin 30.2 pg (27.0-31.2); Mean Corpuscular Volume 88.9 fl (80-94); Mean Platelet Volume 8.4 fl (7.4-10.4); Monocytes # 1.1 K/mm3 (0.1-1.0); Monocytes % 6.5 % (1.7-9.3); Neutrophils # 12.6 K/mm3 (1.8-7.8); Neutrophils % 77.4 % (37.0-80.0); Platelet Count 221 K/mm3 (142-424); Red Blood Count 5.05 M/mm3 (4.60-6.20); Red Cell Distribution Width 13.3 % (11.5-17.5); White Blood Count 16.3 K/mm3 (4.8-10.8)
[2023-07-29 04:18] LABS: Chloride 101 mmol/L (98-107); Potassium 4.9 mmoL/L (3.5-5.1); Sodium 135 mmol/L (136-145)
[2023-07-29 04:20] LABS: Blood Urea Nitrogen 14 mg/dl (9-20); Creatinine Clearance Estimated 136 mL/min (50-200); Estimated Glomerular Filt Rate 71 ml/min (>60); GFR (African American) 86 ML/MIN (>60)
[2023-07-29 04:21] LABS: Alanine Aminotransferase 25 U/L (12-78); Albumin Level 3.1 g/dl (3.5-5.0); Alkaline Phosphatase 85 U/L (38-126); Anion Gap 8.9 mEq/L (5-15); Aspartate Amino Transferase 26 U/L (17-59); Bilirubin,Total 0.8 mg/dl (0.2-1.3); Carbon Dioxide 30 mmol/L (22.0-30.0); Globulin 3.1 g/dL (1.3-3.2); Glucose 124 mg/dl (74-100); Magnesium 2.1 mg/dl (1.6-2.3); Total Protein,Serum 6.2 g/dl (6.3-8.2)
[2023-07-29 04:34] LABS: Troponin I < 0.01 ng/ml (0.00-0.034)
--- NOTE | 2023-07-29 06:16 | CA_ITS ---
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 Ht: 5 ft 10 in Wt: 79lbs BSA: 1.41 BP: 110/54 mmHg Indications: Chest Pain, Shortness of Breath, Hyperlipidemia, Hypertension/HDD, PVC'S 2D Dimensions Left Atrium 3.19 cm LVEF (Syed's) 54.60 % LVOT 2.09 cm (M/F) 1.5-2.5 LV Volume 93.10 mL LA Volume 43.70 mL LA Volume Index 31.00 mL/m2 (M/F) 16-34 EF AP4 54.10 % EF AP2 56.1 % EF BP 54.6 % GL Strain -20.1 % M-Mode Dimensions RVDd 3.29 cm (0.9-2.6) LVDd 4.12 cm (3.5-5.7) Ao Diam 4.68 cm (2.0-3.7) LVDs 2.95 cm (3.5-5.7) IVSd 1.66 cm (0.6-1.1) PWd 0.83 cm (0.6-1.1) EF (Teich) 55.30% FS 28.40% EDV (Teich) 75.10 mL TAPSE 2.81 (<1.7) ESV (Teich) 33.60 mL LV Diastology E Decel Time 147 (160-240 msec) E/A Ratio 0.87 MED E' 8.6 (>= 7 cm/sec) MED A' 16.20 cm/s E'/MED E' Ratio 9.13 (<= 14) LAT E' 11.0 (>= 10 cm/sec) LAT A' 11.90 cm/s E/LAT E' Ratio 7.14 (<= 14) Aortic Valve AoV Peak Marco A. 125.0 (50-130 cm/s) AO Peak GR. 6.20 mmHg Mitral Valve MV E Max Marco A. 79.0 (40-130 cm/s) MV A Velocity 90.0 (40-130 cm/s) E/A Ratio 0.87 MV Decel. Time 147 (160-240 ms) Tricuspid Valve TR P. Velocity 339.00 cm/s RAP Estimate 10.00 mmHg RVSP 55.90 mmHg Left Ventricle The left ventricle is normal size. The left ventricular systolic function is normal. The left ventricular ejection fraction is within the normal range. There is normal left ventricular wall thickness. There is normal LV segmental wall motion. The left ventricular diastolic function is normal. LVEF is 55%. Right Ventricle The right ventricle is normal size. The right ventricular systolic function is normal. Atria The left atrium size is normal. The right atrium size is normal. There is no Doppler evidence of interatrial shunt. Aortic Valve The aortic valve opens well. There is no aortic valvular stenosis. No aortic regurgitation is present. Mitral Valve The mitral valve is normal in structure. No evidence of mitral valve stenosis. Trace mitral regurgitation. Tricuspid Valve The tricuspid valve leaflets are thin and pliable. Mild tricuspid regurgitation. RVP is 35-40 mmHg. Pulmonic Valve The pulmonary valve is normal in structure. Trace pulmonic regurgitation. Great Vessels The aortic root is normal in size. The ascending aorta is normal in size. IVC is normal in size and collapses >50% with inspiration. Pericardium There is no pericardial effusion. Other Information Study Quality: Fair Conclusion Normal biventricular systolic function. No significant valvular stenosis or regurgitation. Electronically signed by : Danae Olivia MD 08/01/2023 15:47:27
--- NOTE | 2023-07-29 08:28 | [facility].PHAINT1 ---
Pharmacy Intervention Comments: No medications use at home prior to admission was verified with patient at bedside.
--- NOTE | 2023-07-29 08:33 | P.CONCA_ITS ---
History of Present Illness History of Present Illness Consult date: 07/29/23 Requesting physician: Rocky Milligan Consult reason: chest pain Chief complaint: Pneumonia, chest pain, PVC's Additional Medical History:: 1. Obesity 2. LLL pneumonia, 07/28/2023 3. Abnormal EKG A. frequent PVC's, 07/28/2023 History of present illness: 48-year-old white male admitted for 1 week history of left-sided chest discomfort worse with cough. CT of the chest performed in the ER was suboptimal but no evidence of central pulmonary emboli noted and with suspicion of left lower lobe pneumonia noted. He does report a viral upper respiratory infection about 2 to 3 weeks ago. He denies any fever or chills. EKG is sinus with ventricular bigeminy. Troponins are within normal limits. White count 16,000 with elevated CRP. Cardiology consulted for evaluation of abnormal EKG. He did smoke but quit several years ago. Denies history of hypertension, hyperlipidemia or diabetes. Echocardiogram has been performed with report pending. [facility] Disclaimer: The information contained in this section may have been updated after the patient was seen, as this information can be updated by other users. Medical History (Updated 07/29/23 @ 12:05 by Eliel Galicia MD) Pleurisy Social History (Updated 07/29/23 @ 00:52 by Grisel Aldridge RN) Smoking Status: Former smoker alcohol intake: never current occupational status: employed Travel in the last 8 weeks: None Review of Systems Review of Systems Review of systems:: pertinent systems reviewed and negative unless documented below *Cardiovascular Cardiovascular: Reports chest pain, Reports dyspnea on exertion and Reports leg edema *Respiratory Respiratory: Reports cough and Reports dyspnea on exertion Exam Data for Last 24 hours Vital signs and Labs for Last 24 Hours: Temp Pulse Resp BP Pulse Ox O2 Del Method 98.1 F 50 L 17 117/88 94 L Room Air 07/29/23 07:47 07/29/23 07:47 07/29/23 07:47 07/29/23 07:47 07/29/23 07:47 07/29/23 07:47 Laboratory Results - last 24 hr 07/28/23 21:48: Chlamy pneumoniae PCR TNP, Adenovirus (PCR) Not detected, B. pertussis DNA (PCR) TNP, Coronavirus OC43 (PCR) Not detected, Coronavirus HKU1 (PCR) Not detected, Coronavirus 229E (PCR) Not detected, SARS-CoV-2 (PCR) Not detected 07/28/23 21:48: SARS-CoV-2 (PCR) Not detected, Coronavirus NL63 (PCR) Not detected, Human Metapneumovir PCR Not detected, Influenza A (H1) PCR Not detected, Influ A (H1N1/09) PCR Not detected, Influenza A (H3) PCR Not detected, Influenza Type A (PCR) Not detected, Influenza A Untype (PCR) Not detected, Influenza Type B (PCR) Not detected 07/28/23 21:48: Influenza Type B (PCR) Not detected, M. pneumoniae (PCR) TNP, Parainfluenza 1 (PCR) Not detected, Parainfluenza 2 (PCR) Not detected, Parainfluenza 3 (PCR) Not detected, Parainfluenza 4 (PCR) Not detected, RSV (PCR) Not detected, Entero/Rhino (PCR) Not detected 07/28/23 21:55: WBC 15.9 H, RBC 5.47, Hgb 16.4, Hct 47.9, MCV 87.4, MCH 29.9, MCHC 34.2, RDW 13.2, Plt Count 217, MPV 8.1, Neut % (Auto) 73.1, Lymph % (Auto) 18.6, [place] % (Auto) 6.3, Eos % (Auto) 1.6, Baso % (Auto) 0.5, Neut # (Auto) 11.6 H, Lymph # (Auto) 3.0, [place] # (Auto) 1.0, Eos # (Auto) 0.3, Baso # (Auto) 0.1, Total Counted 100, Neutrophils % (Manual) 74, Lymphocytes % (Manual) 18, Monocytes % (Manual) 6, Eosinophils % (Manual) 2, Platelet Estimate Normal, RBC Morphology Normal, ESR 21 H, Sodium 135 L, Potassium 4.3, Chloride 101, Carbon Dioxide 29, Anion Gap 9.3, BUN 14, Creatinine 1.00, Estimated Creat Clear 149, Estimated GFR 79, Est GFR ( Amer) 96, Glucose 115 H, Calcium 8.2 L, Magnesium 2.0, Total Bilirubin 1.0, AST 30, ALT 26, Alkaline Phosphatase 90, Troponin I < 0.01, C-Reactive Protein 126.6 H, NT-Pro-B Natriuret Pep 24.5, Total Protein 6.6, Albumin 3.4 L, Globulin 3.2, Albumin/Globulin Ratio 1.1, TSH 2.56 07/29/23 01:25: Troponin I < 0.01 07/29/23 04:05: WBC 16.3 H, RBC 5.05, Hgb 15.2, Hct 44.9, MCV 88.9, MCH 30.2, MCHC 33.9, RDW 13.3, Plt Count 221, MPV 8.4, Neut % (Auto) 77.4, Lymph % (Auto) 14.9, [place] % (Auto) 6.5, Eos % (Auto) 0.7, Baso % (Auto) 0.5, Neut # (Auto) 12.6 H, Lymph # (Auto) 2.4, [place] # (Auto) 1.1 H, Eos # (Auto) 0.1, Baso # (Auto) 0.1, Sodium 135 L, Potassium 4.9, Chloride 101, Carbon Dioxide 30, Anion Gap 8.9, BUN 14, Creatinine 1.10, Estimated Creat Clear 136, Estimated GFR 71, Est GFR ( Amer) 86, Glucose 124 H, Calcium 8.0 L, Magnesium 2.1, Total Bilirubin 0.8, AST 26, ALT 25, Alkaline Phosphatase 85, Troponin I < 0.01, Total Protein 6.2 L, Albumin 3.1 L, Globulin 3.1, Albumin/Globulin Ratio 1.0 L I & O for Last 24 hours: Intake & Output 07/26/23 07/27/23 07/28/23 07/29/23 11:59 11:59 11:59 11:59 Intake Total 0 / 0 Balance 0 / 0 Weight 279 lb 1.6 oz Constitutional Constitutional: no acute distress *Routine Respiratory Exam Respiratory: Present decreased breath sounds and rhonchi *Routine Cardiovascular Exam Cardiovascular: Present RRR and ectopic; Absent murmur, gallop or rubs *Routine Extremities Exam Extremities: Present edema *Routine Neurological Exam Neurological: Present alert, oriented X3 and CN II-XII intact Meds Home Medications and Allergies Home Medications Medication Instructions Recorded Confirmed Type No Known Home Medications 07/29/23 07/29/23 History New Prescriptions to Start Prescriptions: Allergies Allergy/AdvReac Type Severity Reaction Status Date / Time No Known Allergies Allergy Verified 08/31/22 18:45 Assessment and Plan *Assessment and plan (1) Left lower lobe pneumonia: Status: Acute Qualifiers: Pneumonia type: due to unspecified organism Qualified Code(s): J18.9 - Pneumonia, unspecified organism Category: Medical Code(s): J18.9 - Pneumonia, unspecified organism (2) Chest pain, pleuritic: Status: Acute Category: Medical Code(s): R07.81 - Pleurodynia (3) Frequent PVCs: Status: Acute Category: Medical Code(s): I49.3 - Ventricular premature depolarization (4) Obesity: Status: Acute Qualifiers: Body mass index: BMI 39.0-39.9 Obesity classification: adult class 2 (BMI 35 - 39.9) Obesity type: unspecified obesity type Serious obesity comorbidity presence: unspecified whether serious comorbidity present Qualified Code(s): E66.9 - Obesity, unspecified; Z68.39 - Body mass index [BMI] 39.0-39.9, adult Category: Medical Code(s): E66.9 - Obesity, unspecified Plan 1. LLL Pneumonia -on antibiotics with cultures pending -Pulmonary consulted 2. Ventricular bigeminy on EKG -Echo normal EF without significant valve disease -trops normal -TSH normal -elevated CRP at 126 3. Obesity -BMI 39 4. Ex smoker -40 pack yr history 5. Elevated glucose -check Hgb A1c 6. check lipids STable from CV standpoint for discharge home. Recommend 7 day event monitor due to PVC's. Follow up in our office in 2 wks.
[2023-07-29 09:10] LABS: Cholesterol 280 mg/dl (140-200); HDL Cholesterol 31 mg/dl (40-60); Triglycerides 165 mg/dl (30-150); VLDL Cholesterol 33 mg/dL (0-40)
--- NOTE | 2023-07-29 10:06 | P.CONS_ITS ---
History of Present Illness History of present illness: Mr. Ackerman is a 48-year-old male prior smoker around [id number] smoking presented to the ER complaining of left-sided pleuritic chest pain for the last 3 to 4 days progressively getting worse. He denies any sick contact admitted, with no significant productive phlegm. [facility] Disclaimer: The information contained in this section may have been updated after the patient was seen, as this information can be updated by other users. Medical History (Updated 07/29/23 @ 12:05 by Eliel Galicia MD) Pleurisy Social History (Updated 07/29/23 @ 00:52 by Grisel Aldridge RN) Smoking Status: Former smoker alcohol intake: never current occupational status: employed Travel in the last 8 weeks: None Review of Systems Constitutional Constitutional: Denies body ache(s) and Denies fatigue Eyes Eyes: Denies eye discharge, Denies dry eyes, Denies irritation and Denies itchy eyes ENT Ears, Nose, Mouth, and Throat: Denies epistaxis, Denies facial pain, Denies lip swelling and Denies throat swelling *Cardiovascular Cardiovascular: Reports chest pain, Reports dyspnea and Reports dyspnea on exertion *Respiratory Respiratory: Reports chest congestion, Reports cough, Reports dyspnea, Reports dyspnea on exertion, Denies excessive phlegm production, Denies hemoptysis, Reports pain on inspiration, Reports pain with cough and Reports wheezing *Gastrointestinal Gastrointestinal: Denies abdominal pain, Denies belching and Denies cramping *Musculoskeletal Musculoskeletal: Reports back pain, Reports myalgias and Reports other (No small joint swelling or Pain) Psychiatric Psychiatric: Denies homicidal ideation and Denies suicidal ideation Endocrine Endocrine: Denies fatigue and Denies heat intolerance Hematologic/Lymphatic Hematologic/Lymphatic: Denies easy bleeding and Denies lymphadenopathy Allergic/Immunologic Allergic/Immunologic: Denies itchy eyes, Denies lip swelling, Denies throat swelling and Reports wheezing Pulmonology Exam Inpatient Vital signs and Labs for Last 24 Hours: Temp Pulse Resp BP Pulse Ox O2 Del Method 98.1 F 50 L 17 117/88 94 L Room Air 07/29/23 07:47 07/29/23 07:47 07/29/23 07:47 07/29/23 07:47 07/29/23 07:47 07/29/23 09:00 Laboratory Results - last 24 hr 07/28/23 21:48: Chlamy pneumoniae PCR TNP, Adenovirus (PCR) Not detected, B. pertussis DNA (PCR) TNP, Coronavirus OC43 (PCR) Not detected, Coronavirus HKU1 (PCR) Not detected, Coronavirus 229E (PCR) Not detected, SARS-CoV-2 (PCR) Not detected 07/28/23 21:48: SARS-CoV-2 (PCR) Not detected, Coronavirus NL63 (PCR) Not detected, Human Metapneumovir PCR Not detected, Influenza A (H1) PCR Not detected, Influ A (H1N1/09) PCR Not detected, Influenza A (H3) PCR Not detected, Influenza Type A (PCR) Not detected, Influenza A Untype (PCR) Not detected, Influenza Type B (PCR) Not detected 07/28/23 21:48: Influenza Type B (PCR) Not detected, M. pneumoniae (PCR) TNP, Parainfluenza 1 (PCR) Not detected, Parainfluenza 2 (PCR) Not detected, Parainfluenza 3 (PCR) Not detected, Parainfluenza 4 (PCR) Not detected, RSV ( PCR) Not detected, Entero/Rhino (PCR) Not detected 07/28/23 21:55: WBC 15.9 H, RBC 5.47, Hgb 16.4, Hct 47.9, MCV 87.4, MCH 29.9, MCHC 34.2, RDW 13.2, Plt Count 217, MPV 8.1, Neut % (Auto) 73.1, Lymph % (Auto) 18.6, [place] % (Auto) 6.3, Eos % (Auto) 1.6, Baso % (Auto) 0.5, Neut # (Auto) 11.6 H, Lymph # (Auto) 3.0, [place] # (Auto) 1.0, Eos # (Auto) 0.3, Baso # (Auto) 0.1, Total Counted 100, Neutrophils % (Manual) 74, Lymphocytes % (Manual) 18, Monocytes % (Manual) 6, Eosinophils % (Manual) 2, Platelet Estimate Normal, RBC Morphology Normal, ESR 21 H, Sodium 135 L, Potassium 4.3, Chloride 101, Carbon Dioxide 29, Anion Gap 9.3, BUN 14, Creatinine 1.00, Estimated Creat Clear 149, Estimated GFR 79, Est GFR ( Amer) 96, Glucose 115 H, Calcium 8.2 L, Magnesium 2.0, Total Bilirubin 1.0, AST 30, ALT 26, Alkaline Phosphatase 90, Troponin I < 0.01, C-Reactive Protein 126.6 H, NT-Pro-B Natriuret Pep 24.5, Total Protein 6.6, Albumin 3.4 L, Globulin 3.2, Albumin/Globulin Ratio 1.1, TSH 2.56 07/29/23 01:25: Troponin I < 0.01 07/29/23 04:05: WBC 16.3 H, RBC 5.05, Hgb 15.2, Hct 44.9, MCV 88.9, MCH 30.2, MCHC 33.9, RDW 13.3, Plt Count 221, MPV 8.4, Neut % (Auto) 77.4, Lymph % (Auto) 14.9, [place] % (Auto) 6.5, Eos % (Auto) 0.7, Baso % (Auto) 0.5, Neut # (Auto) 12.6 H, Lymph # (Auto) 2.4, [place] # (Auto) 1.1 H, Eos # (Auto) 0.1, Baso # (Auto) 0.1, Sodium 135 L, Potassium 4.9, Chloride 101, Carbon Dioxide 30, Anion Gap 8.9, BUN 14, Creatinine 1.10, Estimated Creat Clear 136, Estimated GFR 71, Est GFR ( Amer) 86, Glucose 124 H, Calcium 8.0 L, Magnesium 2.1, Total Bilirubin 0.8, AST 26, ALT 25, Alkaline Phosphatase 85, Troponin I < 0.01, Total Protein 6.2 L, Albumin 3.1 L, Globulin 3.1, Albumin/Globulin Ratio 1.0 L I & O for Labs for Last 24 Hours: Intake & Output 07/26/23 07/27/23 07/28/23 07/29/23 23:59 23:59 23:59 23:59 Intake Total 0 / 0 Balance 0 / 0 Weight 260 lb 279 lb 1.6 oz Constitutional: Present mild distress Head: Present normocephalic and atraumatic ENT: Present normal exam, normal oropharynx and mucous membranes moist Neck: Present normal inspection and full ROM Respiratory: Present respiratory distress and able to speak in complete sentences; Absent prolonged expiratory phase, wheezes or crackles Cardiac: Present S1/S2, Tachycardia and radial pulses present GI: Present soft and distention; Absent tenderness or guarding Skin: Present intact; Absent cyanosis or jaundice Neuro: Present alert, awake and oriented x 3 Extremities: Present normal inspection; Absent clubbing or cyanosis Psychiatric: Present normal affect and cooperative Meds Home Medications and Allergies Home Medications Medication Instructions Recorded Confirmed Type No Known Home Medications 07/29/23 07/29/23 History New Prescriptions to Start Prescriptions: Allergies Allergy/AdvReac Type Severity Reaction Status Date / Time No Known Allergies Allergy Verified 08/31/22 18:45 Results Laboratory Findings 07/29/23 04:05 07/29/23 04:05 Abnormal lab findings: Abnormal Labs 07/28/23 07/29/23 21:55 04:05 WBC 15.9 H 16.3 H Neut # (Auto) 11.6 H 12.6 H [place] # (Auto) 1.1 H ESR 21 H Sodium 135 L 135 L Glucose 115 H 124 H Calcium 8.2 L 8.0 L C-Reactive Protein 126.6 H Total Protein 6.2 L Albumin 3.4 L 3.1 L Albumin/Globulin Ratio 1.0 L Assessment and Plan *Assessment and plan (1) Left lower lobe pneumonia: Status: Acute Qualifiers: Pneumonia type: due to unspecified organism Qualified Code(s): J18.9 - Pneumonia, unspecified organism Category: Medical Code(s): J18.9 - Pneumonia, unspecified organism (2) Pleurisy: Status: Acute Category: Medical Code(s): R09.1 - Pleurisy Plan Mr. Ackerman is a 48-year-old male prior smoker around [id number] smoking presented to the ER complaining of left-sided pleuritic chest pain for the last 3 to 4 days progressively getting worse. He denies any sick contact admitted, with no significant productive phlegm. Next CTA upon admission suboptimal, no obvious evidence of pulmonary embolism. Bilateral groundglass opacities left lower lobe airspace disease. CTA also concerning for masslike attenuation Limited comprehensive respiratory viral PCR panel negative. Afebrile. Neutrophilic leukocytosis upon admission. Cardiology following for the concerning chest pain. Patient Appears to be in mild respiratory distress. Admits significant improvement in his chest pain. The noted chest pain is likely pleuritic in nature given left lower lobe pneumonia however the possibility of cardiac etiology cannot be completely ruled out at this point of time. Plan: Continue ceftriaxone azithromycin pending sputum cultures DuoNebs every 6 hours on as-needed basis Follow with cardiology recommendations # Thank you for involving pulmonary in this patient care. Will continue to follow.
[2023-07-29 10:46] LABS: Hemoglobin A1C 5.5 % (4.0-6.0)
--- NOTE | 2023-07-29 14:10 | PC.NURSE ---
no follow up appointment made due to not been in office in three years
--- NOTE | 2023-07-29 17:24 | EXP.PN ---
Subjective *Date: 07/29/23 *Time: 17:24 Interval history: patient was seen and evaluated at the bedside. No reported acute events overnight, denies chest pain, shortness of breath, nausea, vomiting, abdominal pain. Exam Data for Last 24 hours Vital signs and Labs for Last 24 Hours: Temp Pulse Resp BP Pulse Ox O2 Del Method 98.6 F 80 18 99/55 L 93 L Room Air 07/29/23 11:08 07/29/23 12:00 07/29/23 11:08 07/29/23 11:08 07/29/23 11:08 07/29/23 17:00 Laboratory Results - last 24 hr 07/28/23 21:48: Chlamy pneumoniae PCR TNP, Adenovirus (PCR) Not detected, B. pertussis DNA (PCR) TNP, Coronavirus OC43 (PCR) Not detected, Coronavirus HKU1 (PCR) Not detected, Coronavirus 229E (PCR) Not detected, SARS-CoV-2 (PCR) Not detected 07/28/23 21:48: SARS-CoV-2 (PCR) Not detected, Coronavirus NL63 (PCR) Not detected, Human Metapneumovir PCR Not detected, Influenza A (H1) PCR Not detected, Influ A (H1N1/09) PCR Not detected, Influenza A (H3) PCR Not detected, Influenza Type A (PCR) Not detected, Influenza A Untype (PCR) Not detected, Influenza Type B (PCR) Not detected 07/28/23 21:48: Influenza Type B (PCR) Not detected, M. pneumoniae (PCR) TNP, Parainfluenza 1 (PCR) Not detected, Parainfluenza 2 (PCR) Not detected, Parainfluenza 3 (PCR) Not detected, Parainfluenza 4 (PCR) Not detected, RSV (PCR) Not detected, Entero/Rhino (PCR) Not detected 07/28/23 21:55: WBC 15.9 H, RBC 5.47, Hgb 16.4, Hct 47.9, MCV 87.4, MCH 29.9, MCHC 34.2, RDW 13.2, Plt Count 217, MPV 8.1, Neut % (Auto) 73.1, Lymph % (Auto) 18.6, [place] % (Auto) 6.3, Eos % (Auto) 1.6, Baso % (Auto) 0.5, Neut # (Auto) 11.6 H, Lymph # (Auto) 3.0, [place] # (Auto) 1.0, Eos # (Auto) 0.3, Baso # (Auto) 0.1, Total Counted 100, Neutrophils % (Manual) 74, Lymphocytes % (Manual) 18, Monocytes % (Manual) 6, Eosinophils % (Manual) 2, Platelet Estimate Normal, RBC Morphology Normal, ESR 21 H, Sodium 135 L, Potassium 4.3, Chloride 101, Carbon Dioxide 29, Anion Gap 9.3, BUN 14, Creatinine 1.00, Estimated Creat Clear 149, Estimated GFR 79, Est GFR ( Amer) 96, Glucose 115 H, Calcium 8.2 L, Magnesium 2.0, Total Bilirubin 1.0, AST 30, ALT 26, Alkaline Phosphatase 90, Troponin I < 0.01, C-Reactive Protein 126.6 H, NT-Pro-B Natriuret Pep 24.5, Total Protein 6.6, Albumin 3.4 L, Globulin 3.2, Albumin/Globulin Ratio 1.1, TSH 2.56 07/29/23 00:01: Hemoglobin A1c 5.5 07/29/23 01:25: Troponin I < 0.01, Triglycerides 165 H, Cholesterol 280 H, LDL Cholesterol Direct 184.10 H, VLDL Cholesterol 33, HDL Cholesterol 31 L, Cholesterol/HDL Ratio 9.0 H 07/29/23 04:05: WBC 16.3 H, RBC 5.05, Hgb 15.2, Hct 44.9, MCV 88.9, MCH 30.2, MCHC 33.9, RDW 13.3, Plt Count 221, MPV 8.4, Neut % (Auto) 77.4, Lymph % (Auto) 14.9, [place] % (Auto) 6.5, Eos % (Auto) 0.7, Baso % (Auto) 0.5, Neut # (Auto) 12.6 H, Lymph # (Auto) 2.4, [place] # (Auto) 1.1 H, Eos # (Auto) 0.1, Baso # (Auto) 0.1, Sodium 135 L, Potassium 4.9, Chloride 101, Carbon Dioxide 30, Anion Gap 8.9, BUN 14, Creatinine 1.10, Estimated Creat Clear 136, Estimated GFR 71, Est GFR ( Amer) 86, Glucose 124 H, Calcium 8.0 L, Magnesium 2.1, Total Bilirubin 0.8, AST 26, ALT 25, Alkaline Phosphatase 85, Troponin I < 0.01, Total Protein 6.2 L, Albumin 3.1 L, Globulin 3.1, Albumin/Globulin Ratio 1.0 L I & O for Last 24 hours: Intake & Output 07/26/23 07/27/23 07/28/23 07/29/23 23:59 23:59 23:59 23:59 Intake Total 542 / 542 Balance 542 / 542 Weight 117.934 kg 126.598 kg Constitutional Constitutional: no acute distress *Routine HEENT Exam Head: Present normocephalic Eye: Present EOMI and PERRL ENT: Present mucous membranes moist *Routine Neck Exam Neck: Present supple; Absent lymphadenopathy *Routine Respiratory Exam Respiratory: Present CTA bilaterally *Routine Cardiovascular Exam Cardiovascular: Present RRR *Routine Abdominal Exam Abdominal: Present soft and normoactive bowel sounds; Absent tenderness *Routine Extremities Exam Extremities: Absent cyanosis, clubbing or edema *Routine Skin Exam Skin: Present warm; Absent rash *Routine Neurological Exam Neurological: Present alert and oriented X3 Assessment and Plan *Assessment and plan (1) Chest pain, pleuritic: Status: Acute Category: Medical Code(s): R07.81 - Pleurodynia (2) Left lower lobe pneumonia: Status: Acute Qualifiers: Pneumonia type: due to unspecified organism Qualified Code(s): J18.9 - Pneumonia, unspecified organism Category: Medical Code(s): J18.9 - Pneumonia, unspecified organism (3) Frequent PVCs: Status: Acute Category: Medical Code(s): I49.3 - Ventricular premature depolarization (4) Obesity: Status: Acute Qualifiers: Obesity type: unspecified obesity type Obesity classification: adult class 2 (BMI 35 - 39.9) Serious obesity comorbidity presence: unspecified whether serious comorbidity present Body mass index: BMI 39.0-39.9 Qualified Code(s): E66.9 - Obesity, unspecified; Z68.39 - Body mass index [BMI] 39.0-39.9, adult Category: Medical Code(s): E66.9 - Obesity, unspecified Plan 48-year-old obese male, former smoker with no other significant past medical problems presenting today with pleuritic chest pain on the left aspect of his chest wall also in his left axillary region. States that he had a cough for the last several days as well. On arrival patient underwent for CTA of chest, that ruled out PEs. Imaging reviewed. There is a concern for mild patchy left lower lobe, with groundglass opacities. Lab work was done. EKG reviewed, with concerning of PVCs. findings are consistent with leukocytosis, elevated CRP ESR. Findings discussed with the ER for admission. Plan as follows: -Chest pleuritic pain associated with left lower pneumonia: Admit patient for medical services. Dispo MedSurg Ceftriaxone and Zithromax IV - continue IV abx Sputum and blood culture pending Pulmonology consult Monitor for O2 saturation. Currently on room air. Oxygen as needed Tylenol and morphine for pain management cardiology recs evenet monitor as OP -Frequent PVCs: Unclear etiology to rule out cardiomyopathy versus a sleep apnea syndrome: Patient is stated that primary doctor was concerning of having sleep apnea but the beginning never completed studies. Patient denies any other drugs or alcohol. Echocardiogram ordered Cardiology consult. Keep n.p.o. for possible cardiac intervention. Monitor CMP daily. Watch for electrolyte imbalance TSH normal Monitor for chest pain. Vital signs, including BP per unit protocol Obesity: Will complicate process care, including risk sleep apnea. educated on weight loss management. PCP to follow abnormal BMI Lovenox for DVT prophylax. On Protonix for GI bleed prophylaxis Full code Plan - continue IV abx overnight, dc likely in AM
--- NOTE | 2023-07-29 17:53 | PC.NURSE ---
Pt is alert and oriented. Been up to the chair, pt ambulates to bathroom independently. Pt has had no complaints this shift. Call light in reach.
[2023-07-29] MEDS: PANTOPRAZOLE 40MG TABLET 40 MG PO (21:20)
[2023-07-30] VITALS: PULSE 70
[2023-07-30 03:56] VITALS: BP 119/48; PULSE 52; RESP 18; TEMP 36.8; O2SAT 92; BMI 39.5
[2023-07-30 04:00] VITALS: PULSE 70
--- NOTE | 2023-07-30 04:31 | PC.NURSE ---
Patient slept well this shift. Patient is A/O x4, able to ambulate independently in room. Patient had no complaints this shift, denies pain/SOA. Call light within reach.
[2023-07-30 07:57] LABS: Basophils # 0.1 K/mm3 (0-0.2); Basophils % 0.4 % (0.1-2.0); Eosinophils # 0.3 K/mm3 (0.0-0.4); Eosinophils % 1.8 % (0.1-12.0); Hematocrit 43.2 % (42.0-52.0); Hemoglobin 14.6 g/dL (14.1-18.0); Lymphocytes # 2.5 K/mm3 (0.7-4.5); Mean Corpuscular HGB Conc 33.8 g/dL (31.8-35.4); Mean Corpuscular Hemoglobin 29.9 pg (27.0-31.2); Mean Corpuscular Volume 88.5 fl (80-94); Mean Platelet Volume 8.3 fl (7.4-10.4); Monocytes # 0.8 K/mm3 (0.1-1.0); Monocytes % 5.9 % (1.7-9.3); Neutrophils # 9.8 K/mm3 (1.8-7.8); Neutrophils % 72.8 % (37.0-80.0); Platelet Count 210 K/mm3 (142-424); Red Blood Count 4.88 M/mm3 (4.60-6.20); Red Cell Distribution Width 13.2 % (11.5-17.5); White Blood Count 13.4 K/mm3 (4.8-10.8)
[2023-07-30 08:00] VITALS: BP 135/74; PULSE 67; RESP 19; TEMP 36.9; O2SAT 96
[2023-07-30 08:12] LABS: Anion Gap 5.1 mEq/L (5-15); Blood Urea Nitrogen 13 mg/dl (9-20); Calcium 7.5 mg/dl (8.4-10.2); Carbon Dioxide 27 mmol/L (22.0-30.0); Chloride 105 mmol/L (98-107); Creatinine Clearance Estimated 147 mL/min (50-200); Estimated Glomerular Filt Rate 71 ml/min (>60); GFR (African American) 86 ML/MIN (>60); Glucose 115 mg/dl (74-100); Potassium 4.1 mmoL/L (3.5-5.1); Sodium 133 mmol/L (136-145)
--- NOTE | 2023-07-30 09:45 | ECG_ITS ---
APPROVED REPORT Exam: Resting ECG HR:83 bpm ECG Measurements Heart Rate 83 AXES MD 156 P 36 QRSd 85 QRS 47 QT 338 T 59 QTc 378 Conclusion SINUS RHYTHM WITH FREQUENT VENTRICULAR PREMATURE COMPLEXES ABNORMAL RHYTHM ECG UNCONFIRMED REPORT Electronically signed by : Gama Agrawal MD 07/30/2023 20:31:06
--- NOTE | 2023-07-30 10:04 | P.PN_ITS ---
Subjective *Date: 07/30/23 *Time: 11:29 Interval history: No acute respiratory vents overnight. Patient with continued improvement in his respiratory symptoms and chest pain. Pulmonology Exam Inpatient Vital signs and Labs for Last 24 Hours: Temp Pulse Resp BP Pulse Ox O2 Del Method 98.4 F 67 19 135/74 96 Room Air 07/30/23 08:00 07/30/23 08:00 07/30/23 08:00 07/30/23 08:00 07/30/23 08:00 07/30/23 09:00 Laboratory Results - last 24 hr 07/29/23 00:01: Hemoglobin A1c 5.5 07/29/23 01:25: Triglycerides 165 H, Cholesterol 280 H, LDL Cholesterol Direct 184.10 H, VLDL Cholesterol 33, HDL Cholesterol 31 L, Cholesterol/HDL Ratio 9.0 H 07/30/23 07:49: WBC 13.4 H, RBC 4.88, Hgb 14.6, Hct 43.2, MCV 88.5, MCH 29.9, MCHC 33.8, RDW 13.2, Plt Count 210, MPV 8.3, Neut % (Auto) 72.8, Lymph % (Auto) 19.0, [place] % (Auto) 5.9, Eos % (Auto) 1.8, Baso % (Auto) 0.4, Neut # (Auto) 9.8 H, Lymph # (Auto) 2.5, [place] # (Auto) 0.8, Eos # (Auto) 0.3, Baso # (Auto) 0.1, Sodium 133 L, Potassium 4.1, Chloride 105, Carbon Dioxide 27, Anion Gap 5.1, BUN 13, Creatinine 1.10, Estimated Creat Clear 147, Estimated GFR 71, Est GFR ( Amer) 86, Glucose 115 H, Calcium 7.5 L I & O for Labs for Last 24 Hours: Intake & Output 07/27/23 07/28/23 07/29/23 07/30/23 23:59 23:59 23:59 23:59 Intake Total 782 / 1082 660 / 660 Output Total 0 / 0 0 / 0 Balance 782 / 1082 660 / 660 Weight 260 lb 279 lb 1.6 oz 282 lb 8 oz Constitutional: Present mild distress Head: Present normocephalic and atraumatic ENT: Present normal exam, normal oropharynx and mucous membranes moist Neck: Present normal inspection and full ROM Respiratory: Present respiratory distress and able to speak in complete sentences; Absent prolonged expiratory phase, wheezes or crackles Cardiac: Present S1/S2, Tachycardia and radial pulses present GI: Present soft and distention; Absent tenderness or guarding Skin: Present intact; Absent cyanosis or jaundice Neuro: Present alert, awake and oriented x 3 Extremities: Present normal inspection; Absent clubbing or cyanosis Psychiatric: Present normal affect and cooperative Assessment and Plan *Assessment and plan (1) Left lower lobe pneumonia: Status: Acute Qualifiers: Pneumonia type: due to unspecified organism Qualified Code(s): J18.9 - Pneumonia, unspecified organism Category: Medical Code(s): J18.9 - Pneumonia, unspecified organism (2) Pleurisy: Status: Acute Category: Medical Code(s): R09.1 - Pleurisy Plan Mr. Ackerman is a 48-year-old male prior smoker around [id number] smoking presented to the ER complaining of left-sided pleuritic chest pain for the last 3 to 4 days progressively getting worse. He denies any sick contact admitted, with no significant productive phlegm. Next CTA upon admission suboptimal, no obvious evidence of pulmonary embolism. Bilateral groundglass opacities left lower lobe airspace disease. CTA also concerning for masslike attenuation Limited comprehensive respiratory viral PCR panel negative. Afebrile. Neutrophilic leukocytosis upon admission. Cardiology following for the concerning chest pain. Patient Appears to be in mild respiratory distress. Admits significant improvement in his chest pain. The noted chest pain is likely pleuritic in nature given left lower lobe pneumonia however the possibility of cardiac etiology cannot be completely ruled out at this point of time. Interval update: No acute respiratory vents overnight. Continued to remain on room air. Continue to have leukocytosis improving. Chest x-ray from this morning no acute change Plan: Wean antibiotics to Augmentin to complete total of 7-day course. Follow with cardiology recommendations # Thank you for involving pulmonary in this patient care. Will follow the patient in pulmonary clinic 2 weeks with a chest x-ray PA lateral prior to clinic visit
--- NOTE | 2023-07-30 10:04 | XR_ITS ---
FINAL REPORT CLINICAL HISTORY: PNM COMPARISON: 07/28/2023 FINDINGS: SINGLE-VIEW CHEST The heart size is normal. The mediastinum is normal. There are persistent left base opacities, may represent atelectasis or pneumonia. There is no pneumothorax. IMPRESSION: Persistent left base atelectasis versus pneumonia. Reviewed, Interpreted and Dictated by Amilcar Matias III, MD Transcribed by Verónica Schwarz Authenticated and [facility]
--- NOTE | 2023-07-30 13:12 | P.DS_ITS ---
General Admission date:: 07/29/23 Discharge date: 07/30/23 HPI HPI HPI: This is a 48-year-old obese male, former smoker with no other significant past medical problems presenting today with pleuritic chest pain on the left aspect of his chest wall also in his left axillary region. States that he had a cough for the last several days as well. Also states that he had a viral URI 2 weeks ago in middle of June. Denies any fevers or chills does state this pain is positional in nature improving with sitting forward worsening with lying back particularly to the left side. Admitted for further work up and treatment Hospital Course Hospital Course Hospital Course: Patient was seen and evaluated at the bedside on the day of discharge. Patient is stable for discharge. Patient wishes to be discharged. All patient questions were answered and patient was given time to ask questions. Patient was discharged in stable condition. Patient understands that she can return to ER in case of any sudden changes in health. Total time spent on DC - 38 mins 48-year-old obese male, former smoker with no other significant past medical problems presenting today with pleuritic chest pain on the left aspect of his chest wall also in his left axillary region. States that he had a cough for the last several days as well. On arrival patient underwent for CTA of chest, that ruled out PEs. Imaging reviewed. There is a concern for mild patchy left lower lobe, with groundglass opacities. Lab work was done. EKG reviewed, with concerning of PVCs. findings are consistent with leukocytosis, elevated CRP ESR. Findings discussed with the ER for admission. Plan as follows: -Chest pleuritic pain associated with left lower pneumonia: improved DC on Amox - clav per pulmonary Event monitor at DC Stable for dc per pulmonary and cardiology -Frequent PVCs - improved Obesity: Will complicate process care, including risk sleep apnea. educated on weight loss management. PCP to follow abnormal BMI Lovenox for DVT prophylax. On Protonix for GI bleed prophylaxis Full code Exam Data for Last 24 hours Vital signs and Labs for Last 24 Hours: Temp Pulse Resp BP Pulse Ox O2 Del Method 98.4 F 67 19 135/74 96 Room Air 07/30/23 08:00 07/30/23 08:00 07/30/23 08:00 07/30/23 08:00 07/30/23 08:00 07/30/23 11:00 Laboratory Results - last 24 hr 07/30/23 07:49: WBC 13.4 H, RBC 4.88, Hgb 14.6, Hct 43.2, MCV 88.5, MCH 29.9, MCHC 33.8, RDW 13.2, Plt Count 210, MPV 8.3, Neut % (Auto) 72.8, Lymph % (Auto) 19.0, [place] % (Auto) 5.9, Eos % (Auto) 1.8, Baso % (Auto) 0.4, Neut # (Auto) 9.8 H, Lymph # (Auto) 2.5, [place] # (Auto) 0.8, Eos # (Auto) 0.3, Baso # (Auto) 0.1, Sodium 133 L, Potassium 4.1, Chloride 105, Carbon Dioxide 27, Anion Gap 5.1, BUN 13, Creatinine 1.10, Estimated Creat Clear 147, Estimated GFR 71, Est GFR ( Amer) 86, Glucose 115 H, Calcium 7.5 L I & O for Last 24 hours: Intake & Output 07/27/23 07/28/23 07/29/23 07/30/23 23:59 23:59 23:59 23:59 Intake Total 782 / 1082 660 / 660 Output Total 0 / 0 0 / 0 Balance 782 / 1082 660 / 660 Weight 117.934 kg 126.598 kg 128.14 kg Constitutional Constitutional: no acute distress *Routine HEENT Exam Head: Present normocephalic Eye: Present EOMI and PERRL ENT: Present mucous membranes moist *Routine Neck Exam Neck: Present supple; Absent lymphadenopathy *Routine Respiratory Exam Respiratory: Present CTA bilaterally *Routine Cardiovascular Exam Cardiovascular: Present RRR *Routine Abdominal Exam Abdominal: Present soft and normoactive bowel sounds; Absent tenderness *Routine Extremities Exam Extremities: Absent cyanosis, clubbing or edema *Routine Skin Exam Skin: Present warm; Absent rash *Routine Neurological Exam Neurological: Present alert and oriented X3 Results Data Completed and Pending Labs on day of discharge: Labs from last 24 hours 07/30/23 07:49 WBC 13.4 H RBC 4.88 Hgb 14.6 Hct 43.2 MCV 88.5 MCH 29.9 MCHC 33.8 RDW 13.2 Plt Count 210 MPV 8.3 Neut % (Auto) 72.8 Lymph % (Auto) 19.0 [place] % (Auto) 5.9 Eos % (Auto) 1.8 Baso % (Auto) 0.4 Neut # (Auto) 9.8 H Lymph # (Auto) 2.5 [place] # (Auto) 0.8 Eos # (Auto) 0.3 Baso # (Auto) 0.1 Sodium 133 L Potassium 4.1 Chloride 105 Carbon Dioxide 27 Anion Gap 5.1 BUN 13 Creatinine 1.10 Estimated Creat Clear 147 Estimated GFR 71 Est GFR ( Amer) 86 Glucose 115 H Calcium 7.5 L DS: Diagnosis Discharge Diagnosis (1) Left lower lobe pneumonia: Status: Acute Code(s): J18.9 - Pneumonia, unspecified organism Qualifiers: Pneumonia type: due to unspecified organism Qualified Code(s): J18.9 - Pneumonia, unspecified organism (2) Pleurisy: Status: Acute Code(s): R09.1 - Pleurisy Meds Home Medications and Allergies Home Medications Medication Instructions Recorded Confirmed Type amoxicillin 875 mg-potassium 1 tab PO Q12H 5 days #10 tabs 07/30/23 Rx clavulanate 125 mg tablet New Prescriptions to Start Prescriptions: amoxicillin-pot clavulanate Rocky Milligan Allergies Allergy/AdvReac Type Severity Reaction Status Date / Time No Known Allergies Allergy Verified 08/31/22 18:45 Discharge Plan Disposition Patient Disposition: Home, Self-Care Condition: Good Follow up Plan Follow up with: Mariusz Gómez MD [Staff Physician] - 08/13/23 2:15 pm Eliel Galicia MD [Physician] - 08/20/23 1:15 pm () Prescriptions/Medication Reconciliation: New amoxicillin-pot clavulanate 875-125 mg tablet 1 tab PO Q12H 5 Days Qty: 10 0RF Other Ambulatory Orders: XR chest 2V (Routine) Timeframe: 2 Weeks Facility: [facility] - Location: Radiology Ordered By: Eliel Galicia Problem Reconciliation Problems Reviewed?: Yes Patient Discharge Instructions ACTIVITY: Ambulate as tolerated DIET: advance to your usual diet Patient Instructions: DI for Pneumonia -- Adult, DI for Angina Providers Primary Care Provider: Gama Agrawal Admit Provider: Jame Bello Attending Provider: Rocky Milligan
--- NOTE | 2023-08-03 14:42 | CARE MANAGER ---
Attempted to contact patient x2 related to hospital discharge. VM was full and could not leave a message. SOLO Maldonado
== END 2023-07-30 13:19 | disposition home or self-care (01) ==
LOC: ER 23:56 → 2ND 07-29 00:11
PROVIDERS: Physician Assistant; Admitting Provider Nurse Practitioner Family; Emergency Provider Student in an Organized Health Care Education/Training Program; PCP Internal Medicine Adolescent Medicine; Visit Provider Internal Medicine
DX: R07.9 Chest pain, unspecified (principal); J18.9 Pneumonia, unspecified organism; E66.9 Obesity, unspecified; Z68.39 Body mass index [BMI] 39.0-39.9, adult; I49.3 Ventricular premature depolarization; Z87.891 Personal history of nicotine dependence
CPT/HCPCS: 36415; 71045; 71046; 71275; 73030; 80048; 80053; 80061; 83036; 83735; 83880; 84443; 84484; 85007; 85025; 85651; 86140; 87581; 87632; 87635; 87636; 87798; 93005; 93270; 93306; 99285; G0378; J0456; J0696; Q9967